=== PATIENT | male | born 1935 | race Caucasian/White ===

== ENCOUNTER 2019-07-31 13:59 | Inpatient (IN) | payer MEDICARE, MEDICAID ==
[~2019-07-31] VITALS: Ht 182.9 cm; Wt 85.5 kg
[~2019-07-31 13:59] MED LIST: AMIO200T61 PO; FURO-150 PO; POTA10TA19 PO; SIMV-45 PO; TERA5CAP4 PO
[2019-07-31] MEDS ORDERED: furosemide 40mg/4ml inj IV ONE (17:30)
[2019-07-31] MEDS ORDERED: pantoprazole 40 MG vial IV ONE (17:30)
[2019-07-31 17:59] LABS: BASOPHILS % (AUTO) 0.6 % (0-1); EOSINOPHILS # (AUTO) 0.1 X10'3 (0-0.9); EOSINOPHILS % (AUTO) 0.9 % (0-6); HEMATOCRIT 27.9 % (42.0-52.0); HEMOGLOBIN 9.5 g/dl (14.0-17.9); LYMPHOCYTES % (AUTO) 15.6 % (21-51); MEAN CORPUSCULAR HEMOGLOBIN 33.6 PG (27.0-31.0); MEAN CORPUSCULAR HGB CONC 33.9 g/dL (33.0-36.5); MEAN CORPUSCULAR VOLUME 99.3 FL (78-98); MEAN PLATELET VOLUME 8.8 FL (7.4-10.4); MONOCYTES # (AUTO) 0.6 X10'3 (0-0.9); MONOCYTES % (AUTO) 9.2 % (2-12); NEUTROPHILS # (AUTO) 4.7 X10'3 (1.8-7.7); NEUTROPHILS % (AUTO) 73.7 % (42-75); PLATELET COUNT 244 X10'3 (140-440); RED BLOOD COUNT 2.81 X10'6 (4.70-6.10); RED CELL DISTRIBUTION WIDTH 15.2 % (11.5-14.5); WHITE BLOOD COUNT 6.4 X10'3 (4.5-11.0)
[2019-07-31 18:23] LABS: ALANINE AMINOTRANSFERASE 44 U/L (12-78); ALBUMIN 3.3 G/DL (3.4-5.0); ALKALINE PHOSPHATASE 52 IU/L (46-116); ANION GAP 9 (8-16); ASPARTATE AMINO TRANSFERASE 28 U/L (10-37); BILIRUBIN,TOTAL 0.4 MG/DL (0.1-1.0); BLOOD UREA NITROGEN 20 MG/DL (7-18); BUN/CREATININE RATIO 15.7 (5.4-32.0); CALCIUM 8.3 MG/DL (8.5-10.1); CHLORIDE 106 MMOL/L (99-107); CREATININE 1.27 MG/DL (0.60-1.10); GLUCOSE 98 MG/DL (70-104); POTASSIUM 4.1 MMOL/L (3.5-5.1); SODIUM 143 MMOL/L (135-145); TOTAL CARBON DIOXIDE 27.7 MMOL/L (24-32); TOTAL PROTEIN 6.5 G/DL (6.4-8.2); eGFR 54 ML/MIN
[2019-07-31 19:07] LABS: OCCULT BLOOD STOOL POSITIVE (Neg)
[2019-07-31] MEDS ORDERED: IPRA30SP (19:42)
[2019-07-31 19:48] LABS: TROPONIN I 0.08 NG/ML (0.0-0.05)
[2019-07-31] MEDS ORDERED: magnesium hydroxide 30ml (MOM) UD suspension PO PRN (19:50)
[2019-07-31] MEDS ORDERED: mag hydrox/Alum hydrox/simeth 30ml oral suspension PO PRN (19:50)
[2019-07-31] MEDS ORDERED: ondansetron/PF 4mg/2ml inj IV PRN (19:50)
[2019-07-31] MEDS ORDERED: morphine 2 MG/ML inj. syringe IV PRN ×2 (19:50)
[2019-07-31] MEDS ORDERED: acetaminophen 325mg tablet PO PRN ×2 (19:50)
--- NOTE | 2019-07-31 23:40 | NUR ---
DR. SUERO AT BEDSIDE ASKING IF PATIENT CAN HAVE A SANDWICH, PATIENT HAS POSITIVE HEMOOCCULT AND WAS NPO, NIMO BRODY VERBALIZED TO GET PATIENT A SANDWICH AND WATER AND NPO AFTER
[2019-08-01 01:15] VITALS: BP 154/61
[2019-08-01 05:00] VITALS: BP 150/60
--- NOTE | 2019-08-01 06:00 | NUR ---
Patient in room ORTHO 4015. I have received report from BHUPINDER Fletcher and had the opportunity to ask questions and assume patient care.
[2019-08-01 06:22] LABS: BASOPHILS % (AUTO) 0.6 % (0-1); EOSINOPHILS # (AUTO) 0.2 X10'3 (0-0.9); EOSINOPHILS % (AUTO) 2.8 % (0-6); HEMATOCRIT 25.7 % (42.0-52.0); HEMOGLOBIN 8.7 g/dl (14.0-17.9); LYMPHOCYTES # (AUTO) 1.2 X10'3 (1.1-4.8); LYMPHOCYTES % (AUTO) 22.9 % (21-51); MEAN CORPUSCULAR HEMOGLOBIN 33.6 PG (27.0-31.0); MEAN CORPUSCULAR HGB CONC 33.7 g/dL (33.0-36.5); MEAN CORPUSCULAR VOLUME 99.6 FL (78-98); MEAN PLATELET VOLUME 8.7 FL (7.4-10.4); MONOCYTES # (AUTO) 0.7 X10'3 (0-0.9); MONOCYTES % (AUTO) 12.1 % (2-12); NEUTROPHILS # (AUTO) 3.3 X10'3 (1.8-7.7); NEUTROPHILS % (AUTO) 61.6 % (42-75); PLATELET COUNT 220 X10'3 (140-440); RED BLOOD COUNT 2.58 X10'6 (4.70-6.10); RED CELL DISTRIBUTION WIDTH 14.9 % (11.5-14.5); WHITE BLOOD COUNT 5.4 X10'3 (4.5-11.0)
--- NOTE | 2019-08-01 06:31 | NUR ---
Report given to ce Soares.
[2019-08-01 06:52] LABS: ALBUMIN 2.9 G/DL (3.4-5.0); ANION GAP 8 (8-16); BLOOD UREA NITROGEN 22 MG/DL (7-18); BUN/CREATININE RATIO 16.5 (5.4-32.0); CALCIUM 8.4 MG/DL (8.5-10.1); CHLORIDE 107 MMOL/L (99-107); CREATININE 1.33 MG/DL (0.60-1.10); GLUCOSE 81 MG/DL (70-104); POTASSIUM 3.9 MMOL/L (3.5-5.1); SODIUM 144 MMOL/L (135-145); TOTAL CARBON DIOXIDE 29.3 MMOL/L (24-32); eGFR 51 ML/MIN
[2019-08-01] MEDS: furosemide 20 MG/2 ML vial IV SCH ×2 (08:21→20:46)
[2019-08-01] MEDS: pantoprazole 40 MG vial IV SCH ×2 (08:21→20:46)
[2019-08-01 10:00] VITALS: BP 132/54
[2019-08-01 18:00] VITALS: BP 102/63
--- NOTE | 2019-08-01 18:00 | NUR ---
Problems reprioritized. Patient report given, questions answered & plan of care reviewed with BHUPINDER Cary.
[2019-08-01] MEDS: potassium chloride 8mEq ER tablet PO SCH (20:46)
[2019-08-01] MEDS: terazosin 5mg capsule PO SCH (20:46)
[2019-08-01] MEDS: atorvastatin 10mg tablet PO SCH (20:46)
[2019-08-01 22:00] VITALS: BP 126/63
[2019-08-02 06:00] VITALS: BP 102/40
--- NOTE | 2019-08-02 06:30 | NUR ---
Report given to ce Cruz and ce Miramontes.
--- NOTE | 2019-08-02 06:35 | NUR ---
Patient in room ORTHO 4015. I have received report from Lynnette ROE and had the opportunity to ask questions and assume patient care.
[2019-08-02 06:46] LABS: BASOPHILS % (AUTO) 0.3 % (0-1); EOSINOPHILS # (AUTO) 0.1 X10'3 (0-0.9); EOSINOPHILS % (AUTO) 2.3 % (0-6); HEMATOCRIT 26.1 % (42.0-52.0); LYMPHOCYTES % (AUTO) 17.9 % (21-51); MEAN CORPUSCULAR HGB CONC 34.5 g/dL (33.0-36.5); MEAN CORPUSCULAR VOLUME 98.7 FL (78-98); MEAN PLATELET VOLUME 8.1 FL (7.4-10.4); MONOCYTES # (AUTO) 0.6 X10'3 (0-0.9); MONOCYTES % (AUTO) 10.1 % (2-12); NEUTROPHILS # (AUTO) 3.9 X10'3 (1.8-7.7); NEUTROPHILS % (AUTO) 69.4 % (42-75); PLATELET COUNT 234 X10'3 (140-440); RED BLOOD COUNT 2.64 X10'6 (4.70-6.10); RED CELL DISTRIBUTION WIDTH 15.2 % (11.5-14.5); WHITE BLOOD COUNT 5.6 X10'3 (4.5-11.0)
[2019-08-02 07:06] LABS: ALBUMIN 2.9 G/DL (3.4-5.0); ANION GAP 8 (8-16); BLOOD UREA NITROGEN 18 MG/DL (7-18); CALCIUM 8.5 MG/DL (8.5-10.1); CHLORIDE 105 MMOL/L (99-107); CREATININE 1.38 MG/DL (0.60-1.10); GLUCOSE 120 MG/DL (70-104); POTASSIUM 3.5 MMOL/L (3.5-5.1); SODIUM 142 MMOL/L (135-145); TOTAL CARBON DIOXIDE 28.6 MMOL/L (24-32); eGFR 49 ML/MIN
[2019-08-02] MEDS: pantoprazole 40 MG vial IV SCH ×2 (07:46→20:21)
[2019-08-02] MEDS: potassium chloride 8mEq ER tablet PO SCH ×2 (07:46→20:27)
[2019-08-02] MEDS: furosemide 20 MG/2 ML vial IV SCH ×2 (07:46→20:20)
[2019-08-02 10:00] VITALS: BP 108/48
--- NOTE | 2019-08-02 12:08 | NUR ---
Initial: Pt admit w/ lower GIB blood via rectum hemorrhoid-related, CHF exacerbation, BPH, and acute versus chronic kidney disease per MD. PO 75-100% clear liquids started 08/01. Will monitor for diet advancement and additional protein needs. Rec: 1. advance diet per MD to heart healthy 2. bowel care as needed 3. wt per rx Addendum: 08/02/19 at [address] Amended: Links added.
[2019-08-02 18:00] VITALS: BP 106/60
--- NOTE | 2019-08-02 18:40 | NUR ---
Student documentation: I have reviewed and agree with all interventions, assessments performed and documented by Fe Cruz RN.
--- NOTE | 2019-08-02 18:42 | NUR ---
Student documentation: I have reviewed and agree with all interventions, assessments performed and documented by Nancy ROE.
--- NOTE | 2019-08-02 19:00 | NUR ---
Patient in room ORTHO 4015. I have received report from Nancy ROE and had the opportunity to ask questions and assume patient care.
[2019-08-02] MEDS: atorvastatin 10mg tablet PO SCH (20:27)
[2019-08-02] MEDS: terazosin 5mg capsule PO SCH (20:31)
[2019-08-02 22:00] VITALS: BP 106/42
[2019-08-03 06:00] VITALS: BP 115/41
[2019-08-03 06:03] LABS: BASOPHILS % (AUTO) 0.5 % (0-1); EOSINOPHILS # (AUTO) 0.1 X10'3 (0-0.9); EOSINOPHILS % (AUTO) 2.6 % (0-6); HEMATOCRIT 26.4 % (42.0-52.0); LYMPHOCYTES # (AUTO) 0.9 X10'3 (1.1-4.8); LYMPHOCYTES % (AUTO) 15.2 % (21-51); MEAN CORPUSCULAR HEMOGLOBIN 33.4 PG (27.0-31.0); MEAN CORPUSCULAR HGB CONC 34.2 g/dL (33.0-36.5); MEAN CORPUSCULAR VOLUME 97.9 FL (78-98); MEAN PLATELET VOLUME 8.5 FL (7.4-10.4); MONOCYTES # (AUTO) 0.8 X10'3 (0-0.9); MONOCYTES % (AUTO) 13.1 % (2-12); NEUTROPHILS % (AUTO) 68.6 % (42-75); PLATELET COUNT 262 X10'3 (140-440); RED CELL DISTRIBUTION WIDTH 15.3 % (11.5-14.5); WHITE BLOOD COUNT 5.8 X10'3 (4.5-11.0)
--- NOTE | 2019-08-03 06:40 | NUR ---
Patient in room ORTHO 4015. I have received report from NORMAN ROE and had the opportunity to ask questions and assume patient care.
[2019-08-03 06:52] LABS: ALBUMIN 2.9 G/DL (3.4-5.0); ANION GAP 8 (8-16); BLOOD UREA NITROGEN 21 MG/DL (7-18); BUN/CREATININE RATIO 13.6 (5.4-32.0); CALCIUM 8.2 MG/DL (8.5-10.1); CHLORIDE 106 MMOL/L (99-107); CREATININE 1.54 MG/DL (0.60-1.10); GLUCOSE 96 MG/DL (70-104); POTASSIUM 4.1 MMOL/L (3.5-5.1); SODIUM 143 MMOL/L (135-145); TOTAL CARBON DIOXIDE 29.3 MMOL/L (24-32); eGFR 43 ML/MIN
[2019-08-03] MEDS: potassium chloride 8mEq ER tablet PO SCH ×2 (07:44→20:21)
[2019-08-03] MEDS: furosemide 20 MG/2 ML vial IV SCH ×2 (07:44→20:21)
[2019-08-03] MEDS: pantoprazole 40 MG vial IV SCH (07:44)
[2019-08-03 10:00] VITALS: BP 108/55
[2019-08-03] MEDS ORDERED: terazosin 5mg capsule PO SCH (17:00)
[2019-08-03 18:00] VITALS: BP 124/55
[2019-08-03] MEDS ORDERED: FERR324T4 PO (18:02)
--- NOTE | 2019-08-03 18:05 | NUR ---
Problems reprioritized. Patient report given, questions answered & plan of care reviewed with MINE ROE.
[2019-08-03] MEDS ORDERED: DEXT15CA28 PO (18:12)
--- NOTE | 2019-08-03 18:23 | NUR ---
Patient in room ORTHO 4015. I have received report from Stephany ROE and had the opportunity to ask questions and assume patient care.
--- NOTE | 2019-08-03 18:50 | NUR ---
I called Dr. Gomes regarding the problem with patient's discharge home tonight. Per the patient, it is unsafe for him to be discharged since he has no access to heat in his trailer tonight; it is only by fire wood and he does not have any chopped now. He needs to chop some wood tomorrow for the heat since he only moved in 4-5 days ago per patient. I informed the patient we will pay for a cab to get him home and I discussed the issue regarding safety for discharge with the doctor, Dr. Gomes. She is keeping the day of discharge as of today but he can leave early in the am by 8am. If the bed is needed for other patient then he will need to be dc'd home as he has no medical necessity to stay past tonight.
--- NOTE | 2019-08-03 18:59 | NUR ---
I have notified patient that he needs to be out of hospital by 8am tomorrow; he said he didn't have his bolivar to the trailer now. And that his friend that drove him to the hospital has the bolivar, I asked that he call the friend to inform him that he needs to pick him up by 8am on Tuesday. The patient said he would not call the friend michele because it is late I encouraged him to do this since he needs to leave at 8am sharp. I informed the pt's nurse of what is going on with the discharge.
[2019-08-03] MEDS: atorvastatin 10mg tablet PO SCH (20:22)
[2019-08-03] MEDS: pantoprazole 40mg Tablet.DR PO SCH (20:22)
[2019-08-03 22:00] VITALS: BP 122/47
[2019-08-04 06:00] VITALS: BP 125/53
--- NOTE | 2019-08-04 06:00 | NUR ---
Patient in room ORTHO 4015. I have received report from MINE ROE and had the opportunity to ask questions and assume patient care.
--- NOTE | 2019-08-04 06:14 | NUR ---
Problems reprioritized. Patient report given, questions answered & plan of care reviewed with Stephany ROE.
[2019-08-04] MEDS: furosemide 20 MG/2 ML vial IV SCH (06:55)
[2019-08-04] MEDS: pantoprazole 40mg Tablet.DR PO SCH (06:55)
[2019-08-04] MEDS: potassium chloride 8mEq ER tablet PO SCH (06:55)
[2019-08-04 07:28] LABS: BASOPHILS % (AUTO) 0.6 % (0-1); EOSINOPHILS # (AUTO) 0.2 X10'3 (0-0.9); EOSINOPHILS % (AUTO) 3.9 % (0-6); HEMATOCRIT 27.1 % (42.0-52.0); HEMOGLOBIN 9.3 g/dl (14.0-17.9); LYMPHOCYTES # (AUTO) 1.2 X10'3 (1.1-4.8); LYMPHOCYTES % (AUTO) 21.7 % (21-51); MEAN CORPUSCULAR HEMOGLOBIN 33.8 PG (27.0-31.0); MEAN CORPUSCULAR HGB CONC 34.3 g/dL (33.0-36.5); MEAN CORPUSCULAR VOLUME 98.6 FL (78-98); MEAN PLATELET VOLUME 8.5 FL (7.4-10.4); MONOCYTES # (AUTO) 0.7 X10'3 (0-0.9); NEUTROPHILS # (AUTO) 3.2 X10'3 (1.8-7.7); NEUTROPHILS % (AUTO) 59.8 % (42-75); PLATELET COUNT 263 X10'3 (140-440); RED BLOOD COUNT 2.75 X10'6 (4.70-6.10); RED CELL DISTRIBUTION WIDTH 15.4 % (11.5-14.5); WHITE BLOOD COUNT 5.3 X10'3 (4.5-11.0)
[2019-08-04 07:34] LABS: ANION GAP 7 (8-16); BLOOD UREA NITROGEN 21 MG/DL (7-18); BUN/CREATININE RATIO 15.3 (5.4-32.0); CALCIUM 8.5 MG/DL (8.5-10.1); CHLORIDE 107 MMOL/L (99-107); CREATININE 1.37 MG/DL (0.60-1.10); GLUCOSE 91 MG/DL (70-104); POTASSIUM 4.1 MMOL/L (3.5-5.1); SODIUM 143 MMOL/L (135-145); eGFR 50 ML/MIN
--- NOTE | 2019-08-04 08:50 | NUR ---
PATIENT DISCHARGED SAFELY HOME VIA TAXI WITH ALL BELONGINGS IN POSSESSION. PATIENT VERBALIZES UNDERSTANDING OF DC INSTRUCTIONS. PRESCRIPTIONS WERE CALLED TO GIOVANNI SCHULZ.
--- NOTE | 2019-08-06 12:17 | NUR ---
Case Management DC follow up: spoke to pt via telephone: reported feeling , "pretty good" Wanted to thank the 4th floor from "[facility]" for helping him, sends his best and God Bless. Pt denies SOB, resp distress, NV, dizziness, and remains afebrile at this time. Productive cough/clear sputum, pt states he is having BMs that are "normal" brown, no blood noted in stool. Verbalizes understanding of meds and why prescribed, taking as ordered. Stated he will [place] going to [place] sometime this next week. All needs met, questions answered at DC, no further questions at this time. Addendum: 08/06/19 at 1225 by Lala Stringer RN Case Management DC follow up: Denies cp, emergent general pain. Understands if symptoms worsen, to call PCP, 03-21 or rtn to ER if symptoms warrant further eval
== END 2019-08-04 08:50 | disposition home or self-care (01) | DRG 291 ==
LOC: ER 14:00 → ED HOLD 19:49 → ORTHO 4S 08-01 01:14
PROVIDERS: ADMIT Internal Medicine; ATTEND Internal Medicine
DX: I13.0 Hypertensive heart and chronic kidney disease with heart failure and stage 1 through stage 4 chronic kidney disease, or unspecified chronic kidney disease (principal); I50.23 Acute on chronic systolic (congestive) heart failure; K92.1 Melena; R04.2 Hemoptysis; N17.9 Acute kidney failure, unspecified; D64.9 Anemia, unspecified; E78.5 Hyperlipidemia, unspecified; K64.9 Unspecified hemorrhoids; Z60.2 Problems related to living alone; I25.10 Atherosclerotic heart disease of native coronary artery without angina pectoris; N18.9 Chronic kidney disease, unspecified; I48.0 Paroxysmal atrial fibrillation; R09.81 Nasal congestion; N40.0 Benign prostatic hyperplasia without lower urinary tract symptoms; Z66 Do not resuscitate; Z95.1 Presence of aortocoronary bypass graft; I25.2 Old myocardial infarction; Z90.49 Acquired absence of other specified parts of digestive tract; Z79.899 Other long term (current) drug therapy
CPT/HCPCS: 36415; 71046; 80048; 80053; 82272; 83880; 84484; 85025; 85610; 87081; 93306; C9113; G0378; J1940

== ENCOUNTER 2021-02-20 11:29 | Inpatient (IN) | payer OTHER, MEDICARE, MEDICAID ==
[~2021-02-20] VITALS: Ht 182.9 cm; Wt 78.1 kg
[~2021-02-20 11:29] MED LIST changes: +DEXT15CA28 PO; +FERR324T4 PO; +IPRA30SP
[2021-02-20 12:45] LABS: D-DIMER 2.84 MG/L FEU (0-0.50)
[2021-02-20 12:47] LABS: ALANINE AMINOTRANSFERASE 27 U/L (12-78); ALBUMIN 3.1 G/DL (3.4-5.0); ALBUMIN/GLOBULIN RATIO 1.1 (1.1-1.5); ALKALINE PHOSPHATASE 45 IU/L (46-116); ANION GAP 7 (8-16); ASPARTATE AMINO TRANSFERASE 23 U/L (10-37); BILIRUBIN,TOTAL 0.4 MG/DL (0.1-1.0); BLOOD UREA NITROGEN 27 MG/DL (7-18); BUN/CREATININE RATIO 21.6 (5.4-32.0); CALCIUM 7.7 MG/DL (8.5-10.1); CHLORIDE 107 MMOL/L (99-107); CREATININE 1.25 MG/DL (0.60-1.10); GLUCOSE 108 MG/DL (70-104); POTASSIUM 4.3 MMOL/L (3.5-5.1); SODIUM 141 MMOL/L (135-145); TOTAL CARBON DIOXIDE 27.4 MMOL/L (24-32); TOTAL PROTEIN 5.8 G/DL (6.4-8.2); eGFR 55 ML/MIN
--- NOTE | 2021-02-20 13:17 | NUR ---
PT NOW STATES HE HAD A SYNCOPAL EPISODE THIS AM AT ABOUT 0500. PT PLACED ON CARDIACMONITOR, AND TOP COATER WERE NOTIFIED OF PT'S TROPONIN OF 0.22 AND BNP RESULT, AWAITING BED IN MAIN ER. PT REMAINS IN RAP AREA AT THIS TIME
[2021-02-20] MEDS ORDERED: enoxaparin 100mg/ml syringe SUBCUT ONE (13:35)
[2021-02-20 13:46] LABS: BASOPHILS % (AUTO) 0.3 % (0-1); EOSINOPHILS % (AUTO) 0.1 % (0-6); LYMPHOCYTES # (AUTO) 0.5 X10'3 (1.1-4.8); LYMPHOCYTES % (AUTO) 7.5 % (21-51); MEAN CORPUSCULAR HEMOGLOBIN 34.4 PG (27.0-31.0); MEAN CORPUSCULAR HGB CONC 32.7 g/dL (33.0-36.5); MEAN CORPUSCULAR VOLUME 105.1 FL (78-98); MEAN PLATELET VOLUME 9.5 FL (7.4-10.4); MONOCYTES # (AUTO) 0.5 X10'3 (0-0.9); MONOCYTES % (AUTO) 7.7 % (2-12); NEUTROPHILS # (AUTO) 5.9 X10'3 (1.8-7.7); NEUTROPHILS % (AUTO) 84.4 % (42-75); PLATELET COUNT 186 X10'3 (140-440); RED BLOOD COUNT 2.05 X10'6 (4.70-6.10); RED CELL DISTRIBUTION WIDTH 14.7 % (11.5-14.5)
[2021-02-20 13:49] LABS: HEMATOCRIT 21.5 % (42.0-52.0)
[2021-02-20] MEDS ORDERED: dexamethasone sod phosphate 10mg/ml inj IV STA (14:56)
[2021-02-20] MEDS ORDERED: iohexol 350MG/ML 100ml bottle IV ONE (15:52)
[2021-02-20 17:42] VITALS: BP 130/56
[2021-02-20 18:00] VITALS: BP 109/50
[2021-02-20] MEDS ORDERED: pantoprazole 40 MG vial IV ONE (18:00)
[2021-02-20] MEDS ORDERED: famotidine/PF 10 mg/ml inj IV ONE (18:00)
[2021-02-20 18:18] VITALS: BP 109/54
[2021-02-20] MEDS ORDERED: ondansetron/PF 4mg/2ml inj IV PRN (18:30)
[2021-02-20] MEDS ORDERED: diphenhydrAMINE 25mg capsule PO PRN (18:30)
[2021-02-20] MEDS ORDERED: HYDROcodone/acetaminophen 5mg/325mg tablet PO PRN (18:30)
[2021-02-20] MEDS: CefTRIAXone/D5W-Rocephin 1gm 50 ML IV SCH (18:30)
[2021-02-20] MEDS ORDERED: potassium Cl 40MEQ/1/2NS 520ml 520 ML IV PRN ×2 (18:30)
[2021-02-20] MEDS ORDERED: HYDROcodone/acetaminophen 10/325mg tab PO PRN (18:30)
[2021-02-20] MEDS ORDERED: furosemide 40mg/4ml inj IV ONE (18:30)
[2021-02-20] MEDS ORDERED: magnesium 2GM in 50ml NS 50 ML IV PRN (18:30)
[2021-02-20] MEDS ORDERED: magnesium Cl slow-release 64mg tablet PO PRN (18:30)
[2021-02-20] MEDS ORDERED: magnesium 4gm in 100ml NS 100 ML IV PRN (18:30)
[2021-02-20] MEDS ORDERED: potassium Cl 20 mEq SR tablet PO PRN ×2 (18:30)
[2021-02-20] MEDS ORDERED: mag hydrox/Alum hydrox/simeth 30ml oral suspension PO PRN (18:30)
[2021-02-20] MEDS: azithromycin 250mg tablet PO SCH (18:30)
[2021-02-20] MEDS ORDERED: ipratropium/albuterol 3ml nebule NEB PRN (18:30)
[2021-02-20] MEDS ORDERED: magnesium hydroxide 30ml (MOM) UD suspension PO PRN (18:30)
[2021-02-20] MEDS: normal saline 1000ml 1,000 ML IV SCH (18:30)
[2021-02-20] MEDS ORDERED: acetaminophen 325mg tablet PO PRN ×2 (18:30)
[2021-02-20] MEDS ORDERED: morphine 2 MG/ML inj. syringe IV PRN ×2 (18:30)
[2021-02-20] MEDS: ipratropium/albuterol 3ml nebule NEB SCH ×2 (19:00→23:00)
[2021-02-20] MEDS ORDERED: RIVA20TA PO (19:01)
[2021-02-20 19:20] LABS: HEMOGLOBIN A1C 4.8 % (4.5-6.2)
[2021-02-20 20:00] VITALS: BP 110/68
[2021-02-20] MEDS: furosemide 40mg/4ml inj IV SCH (20:00)
[2021-02-20] MEDS: K and/or MAG REPLACEMENT MC SCH (20:00)
[2021-02-20] MEDS: methylPREDNISolone sod succ 125mg/2ml vial IV SCH (20:53)
[2021-02-20] MEDS: docusate sod 100mg capsule PO SCH (20:53)
[2021-02-20] MEDS: pantoprazole 40MG/NS 100ML BAG 100 ML IV SCH (20:53)
[2021-02-20] MEDS ORDERED: pantoprazole 40MG/NS 100ML BAG 100 ML IV SCH (21:00)
[2021-02-20] MEDS: atorvastatin 20mg tablet PO SCH (21:00)
[2021-02-20] MEDS: terazosin 5mg capsule PO SCH (21:00)
--- NOTE | 2021-02-20 21:00 | NUR ---
Pt AAOX4. Pt ambulating around his room with no complaints voiced or reported. Pt provided food and drink per his request.
[2021-02-21 00:35] LABS: HEMATOCRIT 25.4 % (42.0-52.0); HEMOGLOBIN 8.6 g/dl (14.0-17.9); MEAN CORPUSCULAR HEMOGLOBIN 34.6 PG (27.0-31.0); MEAN CORPUSCULAR HGB CONC 33.7 g/dL (33.0-36.5); MEAN CORPUSCULAR VOLUME 102.7 FL (78-98); MEAN PLATELET VOLUME 9.6 FL (7.4-10.4); PLATELET COUNT 169 X10'3 (140-440); RED BLOOD COUNT 2.48 X10'6 (4.70-6.10); RED CELL DISTRIBUTION WIDTH 15.1 % (11.5-14.5); WHITE BLOOD COUNT 4.8 X10'3 (4.5-11.0)
[2021-02-21 00:52] LABS: ALANINE AMINOTRANSFERASE 25 U/L (12-78); ALBUMIN 3.2 G/DL (3.4-5.0); ALBUMIN/GLOBULIN RATIO 1.2 (1.1-1.5); ALKALINE PHOSPHATASE 57 IU/L (46-116); ANION GAP 10 (8-16); ASPARTATE AMINO TRANSFERASE 23 U/L (10-37); BILIRUBIN,TOTAL 0.7 MG/DL (0.1-1.0); BLOOD UREA NITROGEN 24 MG/DL (7-18); BUN/CREATININE RATIO 17.6 (5.4-32.0); CHLORIDE 105 MMOL/L (99-107); CREATININE 1.36 MG/DL (0.60-1.10); GLUCOSE 208 MG/DL (70-104); POTASSIUM 4.1 MMOL/L (3.5-5.1); SODIUM 140 MMOL/L (135-145); TOTAL PROTEIN 5.9 G/DL (6.4-8.2); eGFR 50 ML/MIN
[2021-02-21 00:55] LABS: CHOL/HDL RATIO 2.3 (0.00-4.99); CHOLESTEROL 153 MG/DL (0-200); HDL CHOLESTEROL 68 MG/DL (35-60); LDL CHOLESTEROL 67 MG/DL (50-100); MAGNESIUM 2.1 MG/DL (1.5-2.4); PHOSPHORUS 3.8 MG/DL (2.3-4.5)
--- NOTE | 2021-02-21 01:20 | NUR ---
Pt resting comfortably with no complaints voiced or reported.
[2021-02-21 01:21] LABS: TRIGLYCERIDES < 15 MG/DL (20-135)
[2021-02-21] MEDS: pantoprazole 40MG/NS 100ML BAG 100 ML IV SCH ×5 (01:29→21:24)
[2021-02-21] MEDS: methylPREDNISolone sod succ 125mg/2ml vial IV SCH ×4 (01:30→20:00)
[2021-02-21] MEDS: ipratropium/albuterol 3ml nebule NEB SCH ×6 (02:58→23:00)
--- NOTE | 2021-02-21 03:27 | NUR ---
Pt now resting with eyes closed. + rise and fall of chest noted.
--- NOTE | 2021-02-21 06:06 | NUR ---
Pt awake, alert, and oriented x 4. No complaints voiced or reported. Pt states he feels much better and wants to go home. Pt updated on POC and need for new hemogram
[2021-02-21] MEDS: azithromycin 250mg tablet PO SCH (07:59)
[2021-02-21] MEDS: furosemide 40mg/4ml inj IV SCH ×2 (07:59→21:18)
[2021-02-21] MEDS: docusate sod 100mg capsule PO SCH ×2 (07:59→20:00)
[2021-02-21] MEDS: K and/or MAG REPLACEMENT MC SCH ×2 (08:00→20:00)
[2021-02-21] MEDS: ipratropium 0.06% nasal spray 15ml NS SCH (08:00)
[2021-02-21] MEDS: CefTRIAXone/D5W-Rocephin 1gm 50 ML IV SCH (08:17)
[2021-02-21 09:22] LABS: HEMATOCRIT 28.7 % (42.0-52.0); HEMOGLOBIN 9.5 g/dl (14.0-17.9); MEAN CORPUSCULAR HEMOGLOBIN 34.4 PG (27.0-31.0); MEAN CORPUSCULAR VOLUME 104.4 FL (78-98); MEAN PLATELET VOLUME 9.3 FL (7.4-10.4); PLATELET COUNT 193 X10'3 (140-440); RED BLOOD COUNT 2.75 X10'6 (4.70-6.10); RED CELL DISTRIBUTION WIDTH 15.7 % (11.5-14.5); WHITE BLOOD COUNT 3.9 X10'3 (4.5-11.0)
[2021-02-21 09:38] LABS: OCCULT BLOOD STOOL POSITIVE (Neg)
--- NOTE | 2021-02-21 10:35 | NUR ---
sbar given to Michael ROE.
[2021-02-21 13:38] LABS: HEMATOCRIT 27.9 % (42.0-52.0); HEMOGLOBIN 9.3 g/dl (14.0-17.9); MEAN CORPUSCULAR HEMOGLOBIN 34.5 PG (27.0-31.0); MEAN CORPUSCULAR HGB CONC 33.3 g/dL (33.0-36.5); MEAN CORPUSCULAR VOLUME 103.6 FL (78-98); MEAN PLATELET VOLUME 9.4 FL (7.4-10.4); PLATELET COUNT 200 X10'3 (140-440); RED BLOOD COUNT 2.69 X10'6 (4.70-6.10); RED CELL DISTRIBUTION WIDTH 15.7 % (11.5-14.5); WHITE BLOOD COUNT 4.6 X10'3 (4.5-11.0)
[2021-02-21 17:10] LABS: CLARITY,URINE CLEAR (Clear); COLOR,URINE YELLOW (Yellow); GLUCOSE, URINE NEGATIVE (Neg); KETONES,URINE NEGATIVE (Neg); LEUKOCYTE ESTERASE ,URINE NEGATIVE (Neg); NITRITES, URINE NEGATIVE (Neg); OCCULT BLOOD,URINE TRACE-LYSED (Neg); PROTEIN,URINE NEGATIVE (Neg); UROBILINOGEN,URINE 0.2 E.U/dL (0.2-1.0)
[2021-02-21 17:11] LABS: UA COLLECTION TYPE CLN CATCH MIDSTREAM
[2021-02-21 17:15] LABS: BACTERIA,URINE NONE SEEN /HPF (Neg); COARSE GRANULAR CAST 0-3 /LPF (NEGATIVE); MUCUS STRANDS NONE SEEN /LPF (Neg); RBC,URINE 0-2 /HPF (0-2); SQUAMOUS EPITHELIAL CELL,UR FEW /LPF (FEW); WBC,URINE 0-4 /HPF (0-4)
--- NOTE | 2021-02-21 18:05 | NUR ---
Arrempted to call report to PCU at 1740 too late per PCU charge nurse
[2021-02-21 19:49] LABS: HEMATOCRIT 27.5 % (42.0-52.0); HEMOGLOBIN 9.3 g/dl (14.0-17.9); MEAN CORPUSCULAR HEMOGLOBIN 34.5 PG (27.0-31.0); MEAN CORPUSCULAR HGB CONC 33.7 g/dL (33.0-36.5); MEAN CORPUSCULAR VOLUME 102.3 FL (78-98); MEAN PLATELET VOLUME 9.3 FL (7.4-10.4); PLATELET COUNT 212 X10'3 (140-440); RED BLOOD COUNT 2.69 X10'6 (4.70-6.10); RED CELL DISTRIBUTION WIDTH 15.6 % (11.5-14.5); WHITE BLOOD COUNT 6.7 X10'3 (4.5-11.0)
[2021-02-21] MEDS: atorvastatin 20mg tablet PO SCH (21:17)
[2021-02-21] MEDS: terazosin 5mg capsule PO SCH (21:18)
[2021-02-22] VITALS (8 sets, daily range): BP systolic 90–130; BP diastolic 41–57
[2021-02-22] MEDS: pantoprazole 40MG/NS 100ML BAG 100 ML IV SCH ×2 (01:00→08:08)
--- NOTE | 2021-02-22 01:30 | NUR ---
PT RIPPED OUT IV AND REFUSED TO KEEP PROTONIX RUNNING. PT REFUSED TO HAVE ANOTHER IV PLACED.
[2021-02-22] MEDS: ipratropium/albuterol 3ml nebule NEB SCH ×5 (03:00→19:00)
[2021-02-22 04:13] LABS: BASOPHILS % (AUTO) 0 % (0-1); EOSINOPHILS % (AUTO) 0 % (0-6); HEMATOCRIT 24.9 % (42.0-52.0); HEMOGLOBIN 8.3 g/dl (14.0-17.9); LYMPHOCYTES # (AUTO) 0.3 X10'3 (1.1-4.8); LYMPHOCYTES % (AUTO) 3.9 % (21-51); MEAN CORPUSCULAR HGB CONC 33.5 g/dL (33.0-36.5); MEAN CORPUSCULAR VOLUME 104.5 FL (78-98); MEAN PLATELET VOLUME 9.6 FL (7.4-10.4); MONOCYTES # (AUTO) 0.4 X10'3 (0-0.9); NEUTROPHILS # (AUTO) 6.7 X10'3 (1.8-7.7); NEUTROPHILS % (AUTO) 90.1 % (42-75); PLATELET COUNT 169 X10'3 (140-440); RED BLOOD COUNT 2.38 X10'6 (4.70-6.10); RED CELL DISTRIBUTION WIDTH 15.3 % (11.5-14.5); WHITE BLOOD COUNT 7.4 X10'3 (4.5-11.0)
--- NOTE | 2021-02-22 04:39 | NUR ---
PT HAS TAKEN OFF ALL EQUIPMENT AND REFUSES TO HAVE VS DONE.
[2021-02-22 04:40] LABS: ALANINE AMINOTRANSFERASE 22 U/L (12-78); ALBUMIN 3.2 G/DL (3.4-5.0); ALBUMIN/GLOBULIN RATIO 1.3 (1.1-1.5); ALKALINE PHOSPHATASE 43 IU/L (46-116); ANION GAP 6 (8-16); ASPARTATE AMINO TRANSFERASE 16 U/L (10-37); BILIRUBIN,TOTAL 0.4 MG/DL (0.1-1.0); BLOOD UREA NITROGEN 27 MG/DL (7-18); BUN/CREATININE RATIO 18.6 (5.4-32.0); CALCIUM 8.1 MG/DL (8.5-10.1); CHLORIDE 105 MMOL/L (99-107); CREATININE 1.45 MG/DL (0.60-1.10); GLUCOSE 146 MG/DL (70-104); MAGNESIUM 2.3 MG/DL (1.5-2.4); PHOSPHORUS 4.7 MG/DL (2.3-4.5); POTASSIUM 3.9 MMOL/L (3.5-5.1); SODIUM 140 MMOL/L (135-145); TOTAL CARBON DIOXIDE 29.3 MMOL/L (24-32); TOTAL PROTEIN 5.7 G/DL (6.4-8.2); eGFR 46 ML/MIN
[2021-02-22] MEDS: K and/or MAG REPLACEMENT MC SCH ×2 (08:00→20:00)
[2021-02-22] MEDS: ipratropium 0.06% nasal spray 15ml NS SCH (08:00)
[2021-02-22] MEDS: CefTRIAXone/D5W-Rocephin 1gm 50 ML IV SCH (08:07)
[2021-02-22] MEDS: methylPREDNISolone sod succ/PF 40mg inj. IV SCH ×2 (08:07→20:39)
[2021-02-22] MEDS: furosemide 40mg/4ml inj IV SCH ×2 (08:08→20:38)
[2021-02-22] MEDS: docusate sod 100mg capsule PO SCH ×2 (08:08→20:00)
[2021-02-22] MEDS: azithromycin 250mg tablet PO SCH (08:08)
[2021-02-22] MEDS ORDERED: MIDAZolam 1 MG/ML 5ML VIAL ONE (09:10)
[2021-02-22] MEDS ORDERED: LIDOcaine Viscous 15ml cup ONE (09:10)
[2021-02-22] MEDS ORDERED: fentaNYL/PF 50MCG/1 ML 2ML syringe ONE (09:10)
--- NOTE | 2021-02-22 09:25 | NUR ---
Patient found standing on a chair trying to "fix" the blinds on the window in his room. This was the first time I caught him doing it, he was instructed not to do it as he might fall and just not safe. Patient was arguing and not listening so I called the attention of the charge nurse Mason to intervene. He went to the room talked to the patient and finally patient stopped what he was doing and went back to bed. Patient was instructed not to worry about the blinds and that we can call for help if needed. There was no problem found on the blinds, patient was just trying to rolled it up to get a better view from the window, Patient apologized about his behavior, I explained to him that we just care about his safety, he said he understood. Addendum: 02/22/21 at 1747 by Stew Villatoro RN *correction to the above note: "This was the second time I caught him doing it"
--- NOTE | 2021-02-22 09:32 | NUR ---
Patient ate clear liquid tray that was delivered to his room. When I got report from ER nurse this am, the nurse Leela did not mentioned anything about EGD procedure today. Maria De Jesus ROE from GI lab calling GI doctor to find out if it can still be done
--- NOTE | 2021-02-22 09:37 | NUR ---
Patient was taken by Maria De Jesus ROE to GI lab
--- NOTE | 2021-02-22 18:24 | NUR ---
Problems reprioritized. Patient report given, questions answered & plan of care reviewed with Dominguez ROE.
[2021-02-22] MEDS: atorvastatin 20mg tablet PO SCH (20:38)
[2021-02-22] MEDS: terazosin 5mg capsule PO SCH (20:38)
[2021-02-22] MEDS: pantoprazole 40 MG vial IV SCH (20:38)
[2021-02-22] MEDS: lactobacillus rhamnosus 10,000 MMU CELLS/CAPSULE PO SCH (20:38)
[2021-02-22] MEDS: normal saline 1000ml 1,000 ML IV SCH (20:48)
[2021-02-23 02:00] VITALS: BP 116/55
[2021-02-23] MEDS: ipratropium/albuterol 3ml nebule NEB SCH ×2 (03:00→08:00)
--- NOTE | 2021-02-23 06:32 | NUR ---
Problems reprioritized. Patient report given, questions answered & plan of care reviewed with Dominguez ROE.
--- NOTE | 2021-02-23 06:32 | NUR ---
Problems reprioritized. Patient report given, questions answered & plan of care reviewed with PETER. Addendum: 02/23/21 at 0632 by Roly Summers RN Amended: Links added.
--- NOTE | 2021-02-23 06:34 | NUR ---
Patient in room PCU 3026. I have received report from Dominguez ROE and had the opportunity to ask questions and assume patient care.
[2021-02-23 06:49] LABS: BASOPHILS % (AUTO) 0.1 % (0-1); EOSINOPHILS % (AUTO) 0 % (0-6); HEMATOCRIT 25.1 % (42.0-52.0); HEMOGLOBIN 8.2 g/dl (14.0-17.9); LYMPHOCYTES # (AUTO) 0.2 X10'3 (1.1-4.8); LYMPHOCYTES % (AUTO) 3.1 % (21-51); MEAN CORPUSCULAR HEMOGLOBIN 34.3 PG (27.0-31.0); MEAN CORPUSCULAR HGB CONC 32.7 g/dL (33.0-36.5); MEAN PLATELET VOLUME 9.4 FL (7.4-10.4); MONOCYTES # (AUTO) 0.3 X10'3 (0-0.9); MONOCYTES % (AUTO) 4.6 % (2-12); NEUTROPHILS # (AUTO) 5.4 X10'3 (1.8-7.7); NEUTROPHILS % (AUTO) 92.2 % (42-75); PLATELET COUNT 167 X10'3 (140-440); RED BLOOD COUNT 2.39 X10'6 (4.70-6.10); RED CELL DISTRIBUTION WIDTH 15.5 % (11.5-14.5); WHITE BLOOD COUNT 5.9 X10'3 (4.5-11.0)
[2021-02-23 07:00] VITALS: BP 102/56
[2021-02-23 07:12] LABS: ALANINE AMINOTRANSFERASE 22 U/L (12-78); ALBUMIN/GLOBULIN RATIO 1.3 (1.1-1.5); ALKALINE PHOSPHATASE 45 IU/L (46-116); ANION GAP 7 (8-16); ASPARTATE AMINO TRANSFERASE 18 U/L (10-37); BILIRUBIN,TOTAL 0.4 MG/DL (0.1-1.0); BLOOD UREA NITROGEN 26 MG/DL (7-18); CALCIUM 7.8 MG/DL (8.5-10.1); CHLORIDE 107 MMOL/L (99-107); GLUCOSE 125 MG/DL (70-104); MAGNESIUM 2.4 MG/DL (1.5-2.4); POTASSIUM 3.8 MMOL/L (3.5-5.1); SODIUM 143 MMOL/L (135-145); TOTAL CARBON DIOXIDE 29.1 MMOL/L (24-32); TOTAL PROTEIN 5.4 G/DL (6.4-8.2); eGFR 53 ML/MIN
[2021-02-23] MEDS: K and/or MAG REPLACEMENT MC SCH (08:00)
--- NOTE | 2021-02-23 08:06 | NUR ---
PT REFUSED 0700 SVN. NO RESP. DISTRESS OBSERVED
[2021-02-23] MEDS: pantoprazole 40 MG vial IV SCH (08:29)
[2021-02-23] MEDS: methylPREDNISolone sod succ/PF 40mg inj. IV SCH (08:29)
[2021-02-23] MEDS: furosemide 40mg/4ml inj IV SCH (08:29)
[2021-02-23] MEDS: CefTRIAXone/D5W-Rocephin 1gm 50 ML IV SCH (08:30)
[2021-02-23] MEDS: azithromycin 250mg tablet PO SCH (08:30)
[2021-02-23] MEDS: lactobacillus rhamnosus 10,000 MMU CELLS/CAPSULE PO SCH (08:31)
[2021-02-23] MEDS: docusate sod 100mg capsule PO SCH (08:31)
[2021-02-23] MEDS ORDERED: LACT1CAP26 PO (09:26)
[2021-02-23] MEDS ORDERED: BUDE10.22 INH (09:26)
[2021-02-23] MEDS ORDERED: PANT40TA54 PO (09:26)
[2021-02-23] MEDS ORDERED: PRED10TA23 PO (09:26)
[2021-02-23] MEDS ORDERED: ALBU8.5H17 INH (09:26)
[2021-02-23] MEDS ORDERED: CEFD300C3 PO (09:26)
--- NOTE | 2021-02-23 09:47 | NUR ---
PAGER ID: [phone] [facility]: Helen can I advance patients diet from [facility]
[2021-02-23] MEDS ORDERED: pneumococcal 23-VAL P-sac vacc 25 mcg/0.5ml vial IMVAC ONE (10:00)
--- NOTE | 2021-02-23 10:26 | NUR ---
Patient complaining of mild dizziness when he gets up I did set of orthostatics from sitting to standing as follows : sitting BP 106/57 HR 55 Standing 112/52 HR 56, Dr Mendoza rounding and is aware.
[2021-02-23 10:27] VITALS: BP_SYST 106; BP_SYST 112; BP_DIAS 52; BP_DIAS 57
[2021-02-23 11:00] VITALS: BP 126/47
--- NOTE | 2021-02-23 13:50 | NUR ---
Patients discharge instructions reviewed with patient and patient verbalized understanding. Resource RN Leela Brenner'alfonso patients Tele monitor and IV. Patient was taken to lobby where his friend is picking him up and patient is also going to tack picker his pocket knife from security at the [employer].
== END 2021-02-23 13:47 | disposition home or self-care (01) | DRG 368 ==
LOC: ER 11:29 → ED HOLD 18:38 → PCU 3S 02-22 08:50
PROVIDERS: ADMIT Family Medicine; ATTEND Family Medicine
PROC: 30233N1 Transfusion of Nonautologous Red Blood Cells into Peripheral Vein, Percutaneous Approach (ICD-10-PCS; 2021-02-20)
PROC: B32T1ZZ Computerized Tomography (CT Scan) of Left Pulmonary Artery using Low Osmolar Contrast (ICD-10-PCS; 2021-02-20)
PROC: B3201ZZ Computerized Tomography (CT Scan) of Thoracic Aorta using Low Osmolar Contrast (ICD-10-PCS; 2021-02-20)
PROC: B32S1ZZ Computerized Tomography (CT Scan) of Right Pulmonary Artery using Low Osmolar Contrast (ICD-10-PCS; 2021-02-20)
PROC: 0DB68ZX Excision of Stomach, Via Natural or Artificial Opening Endoscopic, Diagnostic (ICD-10-PCS; principal; 2021-02-22)
DX: K20.91 Esophagitis, unspecified with bleeding (principal); I21.A1 Myocardial infarction type 2; I50.23 Acute on chronic systolic (congestive) heart failure; N17.0 Acute kidney failure with tubular necrosis; D62 Acute posthemorrhagic anemia; I13.0 Hypertensive heart and chronic kidney disease with heart failure and stage 1 through stage 4 chronic kidney disease, or unspecified chronic kidney disease; J44.1 Chronic obstructive pulmonary disease with (acute) exacerbation; E78.5 Hyperlipidemia, unspecified; E86.0 Dehydration; I25.10 Atherosclerotic heart disease of native coronary artery without angina pectoris; I48.91 Unspecified atrial fibrillation; Z60.2 Problems related to living alone; N18.9 Chronic kidney disease, unspecified; Z20.822 Contact with and (suspected) exposure to COVID-19; R26.2 Difficulty in walking, not elsewhere classified; N40.0 Benign prostatic hyperplasia without lower urinary tract symptoms; Z79.01 Long term (current) use of anticoagulants; Z79.899 Other long term (current) drug therapy; Z87.891 Personal history of nicotine dependence; Z95.1 Presence of aortocoronary bypass graft; Z90.49 Acquired absence of other specified parts of digestive tract; Z28.21 Immunization not carried out because of patient refusal; K29.70 Gastritis, unspecified, without bleeding
CPT/HCPCS: 36415; 36430; 43239; 71045; 71275; 80053; 80061; 81001; 82272; 82948; 83036; 83735; 83880; 84100; 84484; 85025; 85027; 85379; 86885; 86900; 86901; 86920; 87635; 93005; 93306; 94760; 96361; 96374; 96375; 99152; 99285; A4620; C9113; G0378; J0696; J1100; J1940; J2250; J2920; J2930; J3010; J3490; J7030; J7040; P9016; Q9967

== ENCOUNTER 2021-06-21 10:35 | Inpatient (IN) | payer OTHER, MEDICARE, MEDICAID ==
[~2021-06-21] VITALS: Ht 182.9 cm; Wt 75.6 kg
[~2021-06-21 10:35] MED LIST changes: +ALBU8.5H17 INH; -AMIO200T61 PO; +BUDE10.22 INH; -DEXT15CA28 PO; -FERR324T4 PO; +LACT1CAP26 PO; +PANT40TA54 PO; +POTA-192 PO; -POTA10TA19 PO
[2021-06-21 11:22] LABS: BASOPHILS % (AUTO) 0.3 % (0-1); EOSINOPHILS % (AUTO) 0 % (0-6); HEMATOCRIT 30.4 % (42.0-52.0); HEMOGLOBIN 10.3 g/dl (14.0-17.9); LYMPHOCYTES # (AUTO) 0.5 X10'3 (1.1-4.8); LYMPHOCYTES % (AUTO) 7.9 % (21-51); MEAN CORPUSCULAR HEMOGLOBIN 32.5 PG (27.0-31.0); MEAN CORPUSCULAR HGB CONC 33.7 g/dL (33.0-36.5); MEAN CORPUSCULAR VOLUME 96.2 FL (78-98); MEAN PLATELET VOLUME 8.9 FL (7.4-10.4); MONOCYTES # (AUTO) 0.8 X10'3 (0-0.9); MONOCYTES % (AUTO) 11.4 % (2-12); NEUTROPHILS # (AUTO) 5.3 X10'3 (1.8-7.7); NEUTROPHILS % (AUTO) 80.4 % (42-75); PLATELET COUNT 163 X10'3 (140-440); RED BLOOD COUNT 3.16 X10'6 (4.70-6.10); RED CELL DISTRIBUTION WIDTH 18.3 % (11.5-14.5); WHITE BLOOD COUNT 6.6 X10'3 (4.5-11.0)
[2021-06-21 11:31] LABS: ALANINE AMINOTRANSFERASE 26 U/L (12-78); ALBUMIN 3.3 G/DL (3.4-5.0); ALBUMIN/GLOBULIN RATIO 1.1 (1.1-1.5); ALKALINE PHOSPHATASE 57 IU/L (46-116); ANION GAP 10 (8-16); ASPARTATE AMINO TRANSFERASE 25 U/L (10-37); BILIRUBIN,TOTAL 0.6 MG/DL (0.1-1.0); BLOOD UREA NITROGEN 21 MG/DL (7-18); BUN/CREATININE RATIO 17.2 (5.4-32.0); CALCIUM 8.6 MG/DL (8.5-10.1); CHLORIDE 103 MMOL/L (99-107); CREATININE 1.22 MG/DL (0.60-1.10); GLUCOSE 110 MG/DL (70-104); POTASSIUM 4.3 MMOL/L (3.5-5.1); SODIUM 138 MMOL/L (135-145); TOTAL CARBON DIOXIDE 25.5 MMOL/L (24-32); TOTAL PROTEIN 6.3 G/DL (6.4-8.2); eGFR 56 ML/MIN
[2021-06-21] MEDS ORDERED: nitroGLYCERIN 0.4mg SUBLingual tab SL PRN ×2 (12:35→13:05)
[2021-06-21] MEDS ORDERED: furosemide 10 MG/1 ML 10ml inj IV ONE (12:35)
[2021-06-21] MEDS ORDERED: aspirin 81mg tab.chew PO ONE (12:35)
[2021-06-21] MEDS ORDERED: heparin 10,000 units/1 ML INJ IV ONE (12:35)
[2021-06-21] MEDS ORDERED: heparin 25,000 UNIT/250ml bag 250 ML IV SCH (12:35)
[2021-06-21] MEDS ORDERED: heparin 10,000 units/1 ML INJ IV PRN (12:40)
[2021-06-21 12:52] LABS: PARTIAL THROMBOPLASTIN TIME 33 SECONDS (22-32)
[2021-06-21] MEDS ORDERED: magnesium 2GM in 50ml NS 50 ML IV PRN (13:05)
[2021-06-21] MEDS ORDERED: metoclopramide 5 mg/ml inj IV PRN (13:05)
[2021-06-21] MEDS ORDERED: HYDROcodone/acetaminophen 10/325mg tab PO PRN (13:05)
[2021-06-21] MEDS ORDERED: aspirin 81mg, enteric-coated 1 TAB TABLET.DR PO ONE (13:05)
[2021-06-21] MEDS ORDERED: ondansetron/PF 4mg/2ml inj IV PRN (13:05)
[2021-06-21] MEDS ORDERED: magnesium 4gm in 100ml NS 100 ML IV PRN (13:05)
[2021-06-21] MEDS ORDERED: potassium Cl 20 mEq SR tablet PO PRN ×2 (13:05)
[2021-06-21] MEDS ORDERED: acetaminophen 325mg tablet PO PRN ×2 (13:05)
[2021-06-21] MEDS ORDERED: azithromycin 250mg tablet PO ONE (13:05)
[2021-06-21] MEDS ORDERED: potassium CL 10mEq/100ml bag 100 ML IV PRN (13:05)
[2021-06-21] MEDS ORDERED: morphine 2 MG/ML inj. syringe IV PRN ×2 (13:05)
[2021-06-21] MEDS ORDERED: HYDROcodone/acetaminophen 5mg/325mg tablet PO PRN (13:05)
[2021-06-21] MEDS ORDERED: PERFLUTREN PROTEIN-A MICROSPHR (Optison) 0.22 MG/ML 3ML VIAL IV ONE (13:05)
[2021-06-21] MEDS ORDERED: ondansetron 4mg rapidly disintigrating tab PO PRN (13:05)
[2021-06-21] MEDS ORDERED: magnesium hydroxide 30ml (MOM) UD suspension PO PRN (13:05)
[2021-06-21] MEDS ORDERED: mag hydrox/Alum hydrox/simeth 30ml oral suspension PO PRN (13:05)
[2021-06-21] MEDS ORDERED: ipratropium/albuterol 3ml nebule NEB PRN (13:05)
[2021-06-21] MEDS ORDERED: magnesium Cl slow-release 64mg tablet PO PRN (13:05)
[2021-06-21] MEDS ORDERED: RIVA20TA PO (13:07)
[2021-06-21] MEDS ORDERED: POTA8CAP20 PO (13:08)
[2021-06-21] MEDS ORDERED: nitroGLYCERIN 1gm ointment UD TP ONE (13:15)
--- NOTE | 2021-06-21 13:31 | NUR ---
pt is using urinal at this time ,will put nitro ointment when pt is done urinating.
--- NOTE | 2021-06-21 13:38 | NUR ---
dr stewart at bedside.
[2021-06-21] MEDS: CefTRIAXone/D5W-Rocephin 1gm 50 ML IV SCH (14:16)
[2021-06-21 14:43] LABS: MAGNESIUM 1.9 MG/DL (1.5-2.4); PHOSPHORUS 2.9 MG/DL (2.3-4.5)
[2021-06-21] MEDS: ipratropium/albuterol 3ml nebule NEB SCH ×3 (15:00→23:00)
[2021-06-21] MEDS: terazosin 5mg capsule PO SCH (16:42)
--- NOTE | 2021-06-21 16:56 | NUR ---
rt at bedside.
[2021-06-21] MEDS ORDERED: rivaroxaban 20mg tablet PO SCH (18:00)
[2021-06-21 19:14] LABS: PARTIAL THROMBOPLASTIN TIME 72 SECONDS (22-32)
--- NOTE | 2021-06-21 19:32 | NUR ---
Patient PTT 72. Heparin drip reduced 1 unit/kg/hr per protocol.
[2021-06-21] MEDS: docusate sod 100mg capsule PO SCH (20:00)
[2021-06-21] MEDS: K and/or MAG REPLACEMENT MC SCH (20:00)
[2021-06-21] MEDS: furosemide 40mg/4ml inj IV SCH (20:00)
[2021-06-21] MEDS ORDERED: temazepam 15mg capsule PO PRN (21:00)
[2021-06-21] MEDS: atorvastatin 20mg tablet PO SCH (21:32)
[2021-06-21] MEDS: potassium chloride 8mEq ER tablet PO SCH (21:35)
--- NOTE | 2021-06-21 22:22 | NUR ---
OPTI ADMINSTERED DURING ECHO
--- NOTE | 2021-06-21 23:20 | NUR ---
Received report from BHUPINDER Judge. Awaiting patient arrival to the floor
[2021-06-21 23:35] VITALS: BP 111/60
--- NOTE | 2021-06-21 23:35 | NUR ---
Patient refused some parts of the assessment (skin check, removing pants/socks), refused teaching saying he is going home in the morning. Attempted again to explain all procedures, policies, risks and benefits. Patient verbalized understanding. Paul's temp is 99.9, refused to remove all 4 blankets or take tylenol, patient is aware of risks and said "I'll be fine." Will continue to monitor.
[2021-06-22 02:00] VITALS: BP 96/45
[2021-06-22 02:40] LABS: PARTIAL THROMBOPLASTIN TIME 53 SECONDS (22-32)
--- NOTE | 2021-06-22 02:53 | NUR ---
Patient's PTT therapeutic at 53. No rate changes needed.
[2021-06-22 06:00] VITALS: BP 102/51
--- NOTE | 2021-06-22 06:27 | NUR ---
Problems reprioritized. Patient report given, questions answered & plan of care reviewed with BHUPINDER Lauren and BHUPINDER Olvera.
--- NOTE | 2021-06-22 06:43 | NUR ---
Patient in room PCU 3020. I have received report from Elizabeth ROE and had the opportunity to ask questions and assume patient care.Patient resting in bed in no acute distress.
--- NOTE | 2021-06-22 06:46 | NUR ---
Patient in room PCU 3020. I have received report from Elizabeth ROE and had the opportunity to ask questions and assume patient care.
[2021-06-22] MEDS: ipratropium/albuterol 3ml nebule NEB SCH ×5 (07:27→23:45)
[2021-06-22] MEDS: K and/or MAG REPLACEMENT MC SCH ×2 (08:00→19:48)
[2021-06-22] MEDS: azithromycin 250mg tablet PO SCH (08:10)
[2021-06-22] MEDS: CefTRIAXone/D5W-Rocephin 1gm 50 ML IV SCH (08:10)
[2021-06-22] MEDS: furosemide 40mg/4ml inj IV SCH ×2 (08:10→19:47)
[2021-06-22] MEDS: docusate sod 100mg capsule PO SCH ×2 (08:11→19:49)
[2021-06-22] MEDS: potassium chloride 8mEq ER tablet PO SCH ×2 (08:11→19:47)
[2021-06-22] MEDS: aspirin 81mg, enteric-coated 1 TAB TABLET.DR PO SCH (08:11)
[2021-06-22 08:22] LABS: BASOPHILS % (AUTO) 0.5 % (0-1); EOSINOPHILS % (AUTO) 0 % (0-6); HEMATOCRIT 29.3 % (42.0-52.0); HEMOGLOBIN 9.8 g/dl (14.0-17.9); LYMPHOCYTES % (AUTO) 19.9 % (21-51); MEAN CORPUSCULAR HEMOGLOBIN 32.6 PG (27.0-31.0); MEAN CORPUSCULAR HGB CONC 33.6 g/dL (33.0-36.5); MEAN CORPUSCULAR VOLUME 97.1 FL (78-98); MEAN PLATELET VOLUME 9.1 FL (7.4-10.4); MONOCYTES # (AUTO) 0.6 X10'3 (0-0.9); MONOCYTES % (AUTO) 12.8 % (2-12); NEUTROPHILS # (AUTO) 3.2 X10'3 (1.8-7.7); NEUTROPHILS % (AUTO) 66.8 % (42-75); PLATELET COUNT 133 X10'3 (140-440); RED BLOOD COUNT 3.02 X10'6 (4.70-6.10); RED CELL DISTRIBUTION WIDTH 18.5 % (11.5-14.5); WHITE BLOOD COUNT 4.9 X10'3 (4.5-11.0)
[2021-06-22 09:45] LABS: ALANINE AMINOTRANSFERASE 21 U/L (12-78); ALBUMIN 2.9 G/DL (3.4-5.0); ALKALINE PHOSPHATASE 48 IU/L (46-116); ANION GAP 11 (8-16); ASPARTATE AMINO TRANSFERASE 29 U/L (10-37); BILIRUBIN,TOTAL 0.5 MG/DL (0.1-1.0); BLOOD UREA NITROGEN 22 MG/DL (7-18); BUN/CREATININE RATIO 17.7 (5.4-32.0); CALCIUM 8.5 MG/DL (8.5-10.1); CHLORIDE 102 MMOL/L (99-107); CHOLESTEROL 139 MG/DL (0-200); CREATININE 1.24 MG/DL (0.60-1.10); GLUCOSE 102 MG/DL (70-104); HDL CHOLESTEROL 71 MG/DL (35-60); LDL CHOLESTEROL 63 MG/DL (50-100); MAGNESIUM 1.9 MG/DL (1.5-2.4); POTASSIUM 3.5 MMOL/L (3.5-5.1); SODIUM 137 MMOL/L (135-145); TOTAL CARBON DIOXIDE 24.3 MMOL/L (24-32); TOTAL PROTEIN 5.9 G/DL (6.4-8.2); TRIGLYCERIDES 25 MG/DL (20-135); eGFR 55 ML/MIN
[2021-06-22 11:00] VITALS: BP 100/45
[2021-06-22 15:00] VITALS: BP 109/54
[2021-06-22] MEDS ORDERED: guaiFENesin/DM 10ml UD oral syrup PO PRN (15:25)
[2021-06-22] MEDS ORDERED: ipratropium 0.03% 30ML nasal spray NS SCH (16:05)
[2021-06-22 18:00] VITALS: BP 106/52
--- NOTE | 2021-06-22 18:27 | NUR ---
Problems reprioritized. Patient report given, questions answered & plan of care reviewed with Barbie ROE, patient stable at the transfer of care.
--- NOTE | 2021-06-22 18:27 | NUR ---
Orientee documentation: I have reviewed and agree with all interventions, assessments performed and documented by May ROE . Orientee Medication Administration: For this medication-pass time frame, all medication were reviewed, dispensed, administered and documented per hospital policy by May ROE .
--- NOTE | 2021-06-22 18:31 | NUR ---
Problems reprioritized. Patient report given, questions answered & plan of care reviewed with Barbie ROE.
[2021-06-22] MEDS: rivaroxaban 20mg tablet PO SCH (19:47)
[2021-06-22] MEDS: terazosin 5mg capsule PO SCH (20:03)
[2021-06-22] MEDS: atorvastatin 20mg tablet PO SCH (20:04)
[2021-06-22 22:00] VITALS: BP 92/43
[2021-06-23] VITALS (7 sets, daily range): BP systolic 90–115; BP diastolic 47–61
--- NOTE | 2021-06-23 06:26 | NUR ---
Problems reprioritized. Patient report given, questions answered & plan of care reviewed with May ROE .
[2021-06-23 06:47] LABS: BASOPHILS % (AUTO) 0.4 % (0-1); EOSINOPHILS # (AUTO) 0.1 X10'3 (0-0.9); EOSINOPHILS % (AUTO) 1.6 % (0-6); HEMATOCRIT 29.8 % (42.0-52.0); HEMOGLOBIN 9.9 g/dl (14.0-17.9); LYMPHOCYTES # (AUTO) 0.7 X10'3 (1.1-4.8); LYMPHOCYTES % (AUTO) 21.6 % (21-51); MEAN CORPUSCULAR HEMOGLOBIN 32.3 PG (27.0-31.0); MEAN CORPUSCULAR HGB CONC 33.3 g/dL (33.0-36.5); MEAN CORPUSCULAR VOLUME 96.8 FL (78-98); MEAN PLATELET VOLUME 9.2 FL (7.4-10.4); MONOCYTES # (AUTO) 0.5 X10'3 (0-0.9); MONOCYTES % (AUTO) 14.2 % (2-12); NEUTROPHILS # (AUTO) 2.1 X10'3 (1.8-7.7); NEUTROPHILS % (AUTO) 62.2 % (42-75); PLATELET COUNT 133 X10'3 (140-440); RED BLOOD COUNT 3.08 X10'6 (4.70-6.10); RED CELL DISTRIBUTION WIDTH 18.3 % (11.5-14.5); WHITE BLOOD COUNT 3.4 X10'3 (4.5-11.0)
[2021-06-23] MEDS: ipratropium/albuterol 3ml nebule NEB SCH ×5 (07:00→23:18)
[2021-06-23 07:02] LABS: ALANINE AMINOTRANSFERASE 27 U/L (12-78); ALKALINE PHOSPHATASE 49 IU/L (46-116); ANION GAP 7 (8-16); ASPARTATE AMINO TRANSFERASE 33 U/L (10-37); BILIRUBIN,TOTAL 0.4 MG/DL (0.1-1.0); BLOOD UREA NITROGEN 26 MG/DL (7-18); BUN/CREATININE RATIO 19.3 (5.4-32.0); CALCIUM 8.5 MG/DL (8.5-10.1); CHLORIDE 103 MMOL/L (99-107); CREATININE 1.35 MG/DL (0.60-1.10); GLUCOSE 94 MG/DL (70-104); MAGNESIUM 1.9 MG/DL (1.5-2.4); POTASSIUM 3.9 MMOL/L (3.5-5.1); SODIUM 139 MMOL/L (135-145); TOTAL CARBON DIOXIDE 28.8 MMOL/L (24-32); eGFR 50 ML/MIN
[2021-06-23] MEDS: K and/or MAG REPLACEMENT MC SCH ×2 (08:00→20:00)
[2021-06-23] MEDS: azithromycin 250mg tablet PO SCH (09:38)
[2021-06-23] MEDS: docusate sod 100mg capsule PO SCH ×2 (09:38→20:00)
[2021-06-23] MEDS: aspirin 81mg, enteric-coated 1 TAB TABLET.DR PO SCH (09:38)
[2021-06-23] MEDS: CefTRIAXone/D5W-Rocephin 1gm 50 ML IV SCH (09:38)
[2021-06-23] MEDS: potassium chloride 8mEq ER tablet PO SCH ×2 (09:38→20:00)
[2021-06-23] MEDS: guaiFENesin ER 600mg tablet PO SCH ×2 (11:14→20:00)
--- NOTE | 2021-06-23 18:12 | NUR ---
Patient in room PCU 3020. I have received report from Barbie ROE and had the opportunity to ask questions and assume patient care.
--- NOTE | 2021-06-23 18:19 | NUR ---
Problems reprioritized. Patient report given, questions answered & plan of care reviewed with Ni RN, patient stable at transfer of care.
[2021-06-23] MEDS: rivaroxaban 20mg tablet PO SCH (18:44)
[2021-06-23] MEDS: atorvastatin 20mg tablet PO SCH (20:00)
[2021-06-23] MEDS: terazosin 5mg capsule PO SCH (20:01)
[2021-06-24 02:00] VITALS: BP 106/52
[2021-06-24 06:00] VITALS: BP 97/49
[2021-06-24 06:37] LABS: BASOPHILS % (AUTO) 0.5 % (0-1); EOSINOPHILS # (AUTO) 0.1 X10'3 (0-0.9); HEMOGLOBIN 8.9 g/dl (14.0-17.9); LYMPHOCYTES # (AUTO) 0.7 X10'3 (1.1-4.8); MONOCYTES # (AUTO) 0.5 X10'3 (0-0.9); NEUTROPHILS # (AUTO) 2.4 X10'3 (1.8-7.7); RED CELL DISTRIBUTION WIDTH 17.8 % (11.5-14.5); WHITE BLOOD COUNT 3.8 X10'3 (4.5-11.0)
[2021-06-24 06:39] LABS: EOSINOPHILS % (AUTO) 3.1 % (0-6); HEMATOCRIT 26.4 % (42.0-52.0); LYMPHOCYTES % (AUTO) 19.3 % (21-51); MEAN CORPUSCULAR HEMOGLOBIN 32.1 PG (27.0-31.0); MEAN CORPUSCULAR HGB CONC 33.7 g/dL (33.0-36.5); MEAN CORPUSCULAR VOLUME 95.3 FL (78-98); MEAN PLATELET VOLUME 9.3 FL (7.4-10.4); MONOCYTES % (AUTO) 13.8 % (2-12); NEUTROPHILS % (AUTO) 63.3 % (42-75); PLATELET COUNT 137 X10'3 (140-440); RED BLOOD COUNT 2.77 X10'6 (4.70-6.10)
--- NOTE | 2021-06-24 06:41 | NUR ---
Patient in room PCU 3020. I have received report from BHUPINDER ALMANZA and had the opportunity to ask questions and assume patient care.
[2021-06-24] MEDS: ipratropium/albuterol 3ml nebule NEB SCH ×5 (07:00→23:00)
[2021-06-24 07:04] LABS: ALANINE AMINOTRANSFERASE 30 U/L (12-78); ALBUMIN 2.7 G/DL (3.4-5.0); ALBUMIN/GLOBULIN RATIO 0.9 (1.1-1.5); ALKALINE PHOSPHATASE 46 IU/L (46-116); ANION GAP 9 (8-16); ASPARTATE AMINO TRANSFERASE 35 U/L (10-37); BILIRUBIN,TOTAL 0.4 MG/DL (0.1-1.0); BLOOD UREA NITROGEN 24 MG/DL (7-18); BUN/CREATININE RATIO 21.4 (5.4-32.0); CALCIUM 8.5 MG/DL (8.5-10.1); CHLORIDE 105 MMOL/L (99-107); CREATININE 1.12 MG/DL (0.60-1.10); GLUCOSE 88 MG/DL (70-104); MAGNESIUM 1.9 MG/DL (1.5-2.4); SODIUM 142 MMOL/L (135-145); TOTAL CARBON DIOXIDE 28.2 MMOL/L (24-32); TOTAL PROTEIN 5.6 G/DL (6.4-8.2); eGFR 62 ML/MIN
[2021-06-24] MEDS: azithromycin 250mg tablet PO SCH (07:57)
[2021-06-24] MEDS: docusate sod 100mg capsule PO SCH ×2 (07:57→20:44)
[2021-06-24] MEDS: CefTRIAXone/D5W-Rocephin 1gm 50 ML IV SCH (07:57)
[2021-06-24] MEDS: guaiFENesin ER 600mg tablet PO SCH ×2 (07:57→20:44)
[2021-06-24] MEDS: aspirin 81mg, enteric-coated 1 TAB TABLET.DR PO SCH (07:57)
[2021-06-24] MEDS: K and/or MAG REPLACEMENT MC SCH ×2 (08:00→20:00)
[2021-06-24] MEDS: potassium chloride 8mEq ER tablet PO SCH ×2 (08:08→20:44)
[2021-06-24 11:00] VITALS: BP 104/52
[2021-06-24 15:00] VITALS: BP 101/59
[2021-06-24 18:00] VITALS: BP 120/55
[2021-06-24] MEDS: rivaroxaban 20mg tablet PO SCH (18:33)
[2021-06-24] MEDS: atorvastatin 20mg tablet PO SCH (20:44)
[2021-06-24] MEDS: terazosin 5mg capsule PO SCH (20:44)
[2021-06-24] MEDS: furosemide 20 MG/2 ML vial IV SCH (20:45)
[2021-06-24 22:00] VITALS: BP 128/61
[2021-06-25 02:00] VITALS: BP 106/50
[2021-06-25 06:00] VITALS: BP 101/52
[2021-06-25 06:29] LABS: BASOPHILS % (AUTO) 0.7 % (0-1); EOSINOPHILS # (AUTO) 0.1 X10'3 (0-0.9); EOSINOPHILS % (AUTO) 3.6 % (0-6); HEMATOCRIT 27.5 % (42.0-52.0); HEMOGLOBIN 9.2 g/dl (14.0-17.9); LYMPHOCYTES # (AUTO) 0.8 X10'3 (1.1-4.8); LYMPHOCYTES % (AUTO) 20.2 % (21-51); MEAN CORPUSCULAR HEMOGLOBIN 31.9 PG (27.0-31.0); MEAN CORPUSCULAR HGB CONC 33.3 g/dL (33.0-36.5); MEAN CORPUSCULAR VOLUME 95.9 FL (78-98); MONOCYTES # (AUTO) 0.6 X10'3 (0-0.9); MONOCYTES % (AUTO) 14.6 % (2-12); NEUTROPHILS # (AUTO) 2.5 X10'3 (1.8-7.7); NEUTROPHILS % (AUTO) 60.9 % (42-75); PLATELET COUNT 153 X10'3 (140-440); RED BLOOD COUNT 2.87 X10'6 (4.70-6.10); RED CELL DISTRIBUTION WIDTH 17.7 % (11.5-14.5); WHITE BLOOD COUNT 4.1 X10'3 (4.5-11.0)
[2021-06-25 06:40] LABS: ALANINE AMINOTRANSFERASE 28 U/L (12-78); ALBUMIN 2.8 G/DL (3.4-5.0); ALKALINE PHOSPHATASE 50 IU/L (46-116); ANION GAP 5 (8-16); ASPARTATE AMINO TRANSFERASE 29 U/L (10-37); BILIRUBIN,TOTAL 0.4 MG/DL (0.1-1.0); BLOOD UREA NITROGEN 21 MG/DL (7-18); BUN/CREATININE RATIO 20.8 (5.4-32.0); CALCIUM 8.7 MG/DL (8.5-10.1); CHLORIDE 105 MMOL/L (99-107); CREATININE 1.01 MG/DL (0.60-1.10); GLUCOSE 84 MG/DL (70-104); SODIUM 138 MMOL/L (135-145); TOTAL CARBON DIOXIDE 28.5 MMOL/L (24-32); TOTAL PROTEIN 5.6 G/DL (6.4-8.2); eGFR 70 ML/MIN
[2021-06-25] MEDS: ipratropium/albuterol 3ml nebule NEB SCH ×2 (07:58→11:00)
[2021-06-25] MEDS: K and/or MAG REPLACEMENT MC SCH (08:00)
[2021-06-25] MEDS: docusate sod 100mg capsule PO SCH (08:00)
[2021-06-25] MEDS: furosemide 20 MG/2 ML vial IV SCH (08:16)
[2021-06-25] MEDS: CefTRIAXone/D5W-Rocephin 1gm 50 ML IV SCH (08:16)
[2021-06-25] MEDS: guaiFENesin ER 600mg tablet PO SCH (08:16)
[2021-06-25] MEDS: aspirin 81mg, enteric-coated 1 TAB TABLET.DR PO SCH (08:16)
[2021-06-25] MEDS: potassium chloride 8mEq ER tablet PO SCH (08:16)
[2021-06-25] MEDS: azithromycin 250mg tablet PO SCH (08:16)
[2021-06-25] MEDS ORDERED: LEVO500T90 PO (10:36)
[2021-06-25] MEDS ORDERED: ROBDML PO (10:36)
[2021-06-25] MEDS ORDERED: GUAI600T45 PO (10:36)
[2021-06-25] MEDS ORDERED: FURO-150 PO (10:36)
== END 2021-06-25 14:10 | disposition home or self-care (01) | DRG 193 ==
LOC: ER 10:36 → ED HOLD 13:32 → EDBEDREQ 21:24 → PCU 3S 23:25
PROVIDERS: ADMIT Family Medicine; ATTEND Family Medicine
DX: J18.9 Pneumonia, unspecified organism (principal); I21.A1 Myocardial infarction type 2; I50.43 Acute on chronic combined systolic (congestive) and diastolic (congestive) heart failure; J96.21 Acute and chronic respiratory failure with hypoxia; I13.0 Hypertensive heart and chronic kidney disease with heart failure and stage 1 through stage 4 chronic kidney disease, or unspecified chronic kidney disease; J44.0 Chronic obstructive pulmonary disease with (acute) lower respiratory infection; J98.11 Atelectasis; Z20.822 Contact with and (suspected) exposure to COVID-19; I48.91 Unspecified atrial fibrillation; J40 Bronchitis, not specified as acute or chronic; Z60.2 Problems related to living alone; N18.9 Chronic kidney disease, unspecified; I50.84 End stage heart failure; E78.5 Hyperlipidemia, unspecified; I25.10 Atherosclerotic heart disease of native coronary artery without angina pectoris; N40.0 Benign prostatic hyperplasia without lower urinary tract symptoms; Z86.16 Personal history of COVID-19; Z87.891 Personal history of nicotine dependence; Z95.1 Presence of aortocoronary bypass graft; Z98.61 Coronary angioplasty status; I25.2 Old myocardial infarction; Z90.49 Acquired absence of other specified parts of digestive tract
CPT/HCPCS: 36415; 71045; 80053; 80061; 83605; 83735; 83880; 84100; 84145; 84443; 84484; 85025; 85730; 87040; 87081; 87502; 87503; 87635; 93005; 93306; 94640; 94667; 94668; 94760; 96365; 96375; 99291; C9803; G0378; J0696; J1644; J1940

== ENCOUNTER 2021-07-20 14:24 | Inpatient (IN) | payer OTHER, MEDICARE, MEDICAID ==
[~2021-07-20] VITALS: Ht 182.9 cm; Wt 76.2 kg
[~2021-07-20 14:24] MED LIST changes: -ALBU8.5H17 INH; -BUDE10.22 INH; +GUAI600T45 PO; -LACT1CAP26 PO; +LEVO500T90 PO; -PANT40TA54 PO; -POTA-192 PO; +POTA8CAP20 PO; +RIVA20TA PO; +ROBDML PO
[2021-07-20 15:09] LABS: BASOPHILS % (AUTO) 0.6 % (0-1); EOSINOPHILS # (AUTO) 0.1 X10'3 (0-0.9); EOSINOPHILS % (AUTO) 2.6 % (0-6); HEMATOCRIT 24.7 % (42.0-52.0); HEMOGLOBIN 8.3 g/dl (14.0-17.9); LYMPHOCYTES # (AUTO) 0.7 X10'3 (1.1-4.8); LYMPHOCYTES % (AUTO) 15.1 % (21-51); MEAN CORPUSCULAR HGB CONC 33.7 g/dL (33.0-36.5); MEAN CORPUSCULAR VOLUME 97.7 FL (78-98); MONOCYTES # (AUTO) 0.6 X10'3 (0-0.9); MONOCYTES % (AUTO) 13.4 % (2-12); NEUTROPHILS # (AUTO) 3.1 X10'3 (1.8-7.7); NEUTROPHILS % (AUTO) 68.3 % (42-75); PLATELET COUNT 142 X10'3 (140-440); RED BLOOD COUNT 2.53 X10'6 (4.70-6.10); RED CELL DISTRIBUTION WIDTH 18.5 % (11.5-14.5); WHITE BLOOD COUNT 4.5 X10'3 (4.5-11.0)
[2021-07-20 15:28] LABS: ALANINE AMINOTRANSFERASE 25 U/L (12-78); ALBUMIN 3.3 G/DL (3.4-5.0); ALBUMIN/GLOBULIN RATIO 1.2 (1.1-1.5); ALKALINE PHOSPHATASE 65 IU/L (46-116); ANION GAP 10 (8-16); ASPARTATE AMINO TRANSFERASE 26 U/L (10-37); BILIRUBIN,TOTAL 0.6 MG/DL (0.1-1.0); BLOOD UREA NITROGEN 41 MG/DL (7-18); BUN/CREATININE RATIO 24.6 (5.4-32.0); CALCIUM 8.4 MG/DL (8.5-10.1); CHLORIDE 101 MMOL/L (99-107); CREATININE 1.67 MG/DL (0.60-1.10); GLUCOSE 110 MG/DL (70-104); SODIUM 138 MMOL/L (135-145); TOTAL CARBON DIOXIDE 27.2 MMOL/L (24-32); TOTAL PROTEIN 6.1 G/DL (6.4-8.2); eGFR 39 ML/MIN
[2021-07-20 15:36] LABS: C-REACTIVE PROTEIN 0.65 MG/DL (0.0-0.5)
[2021-07-20 16:18] LABS: D-DIMER 0.74 MG/L FEU (0-0.50)
[2021-07-20] MEDS ORDERED: aspirin 81mg tab.chew PO ONE (17:50)
--- NOTE | 2021-07-20 18:44 | NUR ---
assumed care of patient - asked charge nurse to get cardiac leads into the room to monitor the patient. Pt is currently seated in bed no distress and denies CP.
--- NOTE | 2021-07-20 19:37 | NUR ---
patisteven now on monitor sr with inverted t waves wide complex. patietn denies symptoms at this time. will CTM. trop's elevated x 2
[2021-07-20] MEDS ORDERED: diphenhydrAMINE 25mg capsule PO PRN (20:50)
[2021-07-20] MEDS ORDERED: ondansetron/PF 4mg/2ml inj IV PRN (20:50)
[2021-07-20] MEDS ORDERED: HYDROcodone/acetaminophen 5mg/325mg tablet PO PRN (20:50)
[2021-07-20] MEDS ORDERED: acetaminophen 325mg tablet PO PRN ×2 (20:50)
[2021-07-20] MEDS ORDERED: diphenhydrAMINE 50 mg/ml inj IV PRN (20:50)
[2021-07-20] MEDS ORDERED: acetaminophen 650mg rectal suppository RC PRN (20:50)
[2021-07-20] MEDS ORDERED: mag hydrox/Alum hydrox/simeth 30ml oral suspension PO PRN (20:50)
[2021-07-20] MEDS ORDERED: bisacodyl 10mg suppository rectal RC PRN (20:50)
[2021-07-20] MEDS ORDERED: magnesium hydroxide 30ml (MOM) UD suspension PO PRN (20:50)
[2021-07-20] MEDS ORDERED: morphine 2 MG/ML inj. syringe IV PRN ×2 (20:50)
[2021-07-20] MEDS ORDERED: FURO40TA4 PO (20:53)
[2021-07-20] MEDS ORDERED: POTA8CAP20 PO (20:54)
[2021-07-20] MEDS ORDERED: SIMV-45 PO (20:54)
[2021-07-20] MEDS ORDERED: RIVA20TA PO (20:54)
[2021-07-20] MEDS ORDERED: TERA5CAP4 PO (20:54)
[2021-07-20] MEDS ORDERED: IPRA30SP (20:54)
[2021-07-20] MEDS ORDERED: temazepam 15mg capsule PO PRN (21:00)
[2021-07-20 21:06] LABS: HEMOGLOBIN A1C 5.6 % (4.5-6.2)
[2021-07-20 21:17] LABS: APTT 29 SECONDS (22-32)
[2021-07-20 21:18] LABS: MAGNESIUM 2.2 MG/DL (1.5-2.4); PHOSPHORUS 4.3 MG/DL (2.3-4.5)
[2021-07-21] VITALS (13 sets, daily range): BP systolic 97–126; BP diastolic 46–67
[2021-07-21 03:42] LABS: EOSINOPHILS # (AUTO) 0.2 X10'3 (0-0.9); EOSINOPHILS % (AUTO) 4.8 % (0-6); HEMATOCRIT 24.1 % (42.0-52.0); HEMOGLOBIN 8.2 g/dl (14.0-17.9); LYMPHOCYTES % (AUTO) 23.5 % (21-51); MEAN CORPUSCULAR HEMOGLOBIN 33.4 PG (27.0-31.0); MEAN CORPUSCULAR HGB CONC 34.1 g/dL (33.0-36.5); MEAN CORPUSCULAR VOLUME 97.8 FL (78-98); MEAN PLATELET VOLUME 8.9 FL (7.4-10.4); MONOCYTES # (AUTO) 0.5 X10'3 (0-0.9); MONOCYTES % (AUTO) 12.5 % (2-12); NEUTROPHILS # (AUTO) 2.5 X10'3 (1.8-7.7); NEUTROPHILS % (AUTO) 58.2 % (42-75); PLATELET COUNT 139 X10'3 (140-440); RED BLOOD COUNT 2.46 X10'6 (4.70-6.10); WHITE BLOOD COUNT 4.3 X10'3 (4.5-11.0)
[2021-07-21 03:56] LABS: ALANINE AMINOTRANSFERASE 9 U/L (12-78); ALBUMIN 3.2 G/DL (3.4-5.0); ALBUMIN/GLOBULIN RATIO 1.3 (1.1-1.5); ALKALINE PHOSPHATASE 60 IU/L (46-116); ANION GAP 8 (8-16); ASPARTATE AMINO TRANSFERASE 22 U/L (10-37); BILIRUBIN,TOTAL 0.5 MG/DL (0.1-1.0); BLOOD UREA NITROGEN 40 MG/DL (7-18); BUN/CREATININE RATIO 23.7 (5.4-32.0); CALCIUM 8.6 MG/DL (8.5-10.1); CHLORIDE 102 MMOL/L (99-107); CREATININE 1.69 MG/DL (0.60-1.10); GLUCOSE 115 MG/DL (70-104); POTASSIUM 3.3 MMOL/L (3.5-5.1); SODIUM 140 MMOL/L (135-145); TOTAL CARBON DIOXIDE 29.7 MMOL/L (24-32); TOTAL PROTEIN 5.7 G/DL (6.4-8.2); eGFR 39 ML/MIN
[2021-07-21 03:58] LABS: CHOLESTEROL 139 MG/DL (0-200); HDL CHOLESTEROL 68 MG/DL (35-60); LDL CHOLESTEROL 64 MG/DL (50-100); TRIGLYCERIDES 25 MG/DL (20-135)
--- NOTE | 2021-07-21 06:39 | NUR ---
Change of shift report given to Osiris ROE Addendum: 07/21/21 at 0640 by Fannie Woodall RN Amended: Links added.
[2021-07-21] MEDS ORDERED: nitroGLYCERIN 0.4mg SUBLingual tab SL PRN (06:55)
[2021-07-21] MEDS ORDERED: metoprolol tartrate 1mg/ml inj IV PRN (06:55)
[2021-07-21] MEDS ORDERED: aminophylline 250mg/10ml inj. IV PRN (06:55)
[2021-07-21] MEDS ORDERED: regadenoson 0.4mg/5ml syringe IV ONE (06:55)
--- NOTE | 2021-07-21 08:42 | NUR ---
pt is scheduled for stress test, Dr Cruz gave verbal order to hold stress test until evaluated by mount loader, [employer] tech and primary nurse, Osiris ROE aware,
[2021-07-21] MEDS: aspirin 81mg, enteric-coated 1 TAB TABLET.DR PO SCH (11:18)
[2021-07-21] MEDS: pantoprazole 40mg Tablet.DR PO SCH (11:18)
[2021-07-21] MEDS: docusate sod 100mg capsule PO SCH ×2 (11:18→20:52)
[2021-07-21] MEDS: atorvastatin 20mg tablet PO SCH (11:20)
[2021-07-21] MEDS: furosemide 20 MG/2 ML vial IV SCH (15:48)
[2021-07-21] MEDS ORDERED: potassium Cl 20 mEq SR tablet PO PRN (15:55)
[2021-07-21] MEDS ORDERED: potassium CL 10mEq/100ml bag 100 ML IV PRN (15:55)
[2021-07-21] MEDS ORDERED: magnesium Cl slow-release 64mg tablet PO PRN (15:55)
[2021-07-21] MEDS ORDERED: magnesium 4gm in 100ml NS 100 ML IV PRN (15:55)
[2021-07-21] MEDS: potassium Cl 20 mEq SR tablet PO PRN (17:21)
[2021-07-21] MEDS ORDERED: rivaroxaban 20mg tablet PO SCH (18:00)
--- NOTE | 2021-07-21 18:21 | NUR ---
Problems reprioritized. Patient report given, questions answered & plan of care reviewed with Trista/ARCHIE ROE.
[2021-07-21] MEDS: carVEDilol 3.125mg tablet PO SCH (20:52)
[2021-07-21] MEDS ORDERED: terazosin 5mg capsule PO SCH (21:00)
[2021-07-22 02:00] VITALS: BP 100/47
[2021-07-22] MEDS: potassium Cl 20 mEq SR tablet PO PRN (04:26)
--- NOTE | 2021-07-22 06:08 | NUR ---
Patient in room PCU 3025. I have received report from Jamaica RN and had the opportunity to ask questions and assume patient care.
[2021-07-22 06:17] LABS: BASOPHILS % (AUTO) 0.8 % (0-1); EOSINOPHILS # (AUTO) 0.2 X10'3 (0-0.9); EOSINOPHILS % (AUTO) 5.8 % (0-6); HEMOGLOBIN 7.6 g/dl (14.0-17.9); LYMPHOCYTES # (AUTO) 0.8 X10'3 (1.1-4.8); MEAN CORPUSCULAR HEMOGLOBIN 32.3 PG (27.0-31.0); MEAN CORPUSCULAR HGB CONC 32.9 g/dL (33.0-36.5); MEAN CORPUSCULAR VOLUME 98.2 FL (78-98); MEAN PLATELET VOLUME 8.8 FL (7.4-10.4); MONOCYTES # (AUTO) 0.5 X10'3 (0-0.9); MONOCYTES % (AUTO) 12.6 % (2-12); NEUTROPHILS # (AUTO) 2.5 X10'3 (1.8-7.7); NEUTROPHILS % (AUTO) 61.8 % (42-75); PLATELET COUNT 135 X10'3 (140-440); RED BLOOD COUNT 2.35 X10'6 (4.70-6.10)
[2021-07-22 06:55] LABS: ALANINE AMINOTRANSFERASE 24 U/L (12-78); ALBUMIN 2.8 G/DL (3.4-5.0); ALKALINE PHOSPHATASE 51 IU/L (46-116); ANION GAP 7 (8-16); ASPARTATE AMINO TRANSFERASE 19 U/L (10-37); BILIRUBIN,TOTAL 0.4 MG/DL (0.1-1.0); BLOOD UREA NITROGEN 40 MG/DL (7-18); BUN/CREATININE RATIO 28.2 (5.4-32.0); CALCIUM 8.5 MG/DL (8.5-10.1); CHLORIDE 107 MMOL/L (99-107); CREATININE 1.42 MG/DL (0.60-1.10); GLUCOSE 96 MG/DL (70-104); POTASSIUM 4.2 MMOL/L (3.5-5.1); SODIUM 142 MMOL/L (135-145); TOTAL CARBON DIOXIDE 27.8 MMOL/L (24-32); TOTAL PROTEIN 5.5 G/DL (6.4-8.2); eGFR 47 ML/MIN
[2021-07-22] MEDS: carVEDilol 3.125mg tablet PO SCH (09:45)
[2021-07-22] MEDS: pantoprazole 40mg Tablet.DR PO SCH (09:45)
[2021-07-22] MEDS: aspirin 81mg, enteric-coated 1 TAB TABLET.DR PO SCH (09:45)
[2021-07-22] MEDS: docusate sod 100mg capsule PO SCH (09:45)
[2021-07-22] MEDS: atorvastatin 20mg tablet PO SCH (09:45)
[2021-07-22] MEDS: furosemide 20 MG/2 ML vial IV SCH (09:46)
--- NOTE | 2021-07-22 14:48 | NUR ---
Patient is stable for discharge per Dr. Cruz orders. All discharge instructions reviewed with patient and all questions answered. PIV discontinued, cannula intact. Tele monitor discontinued. Belongings sent with patient. Patient wheeled to lobby via nursing staff and picked up by friend.
== END 2021-07-22 14:55 | disposition home or self-care (01) | DRG 280 ==
LOC: ER 14:25 → ED HOLD 20:50 → PCU 3S 07-21 00:25
PROVIDERS: ADMIT Family Medicine; ATTEND Internal Medicine
PROC: 4A02XM4 Measurement of Cardiac Total Activity, External Approach (ICD-10-PCS; principal; 2021-07-21)
PROC: 3E073KZ Introduction of Other Diagnostic Substance into Coronary Artery, Percutaneous Approach (ICD-10-PCS; 2021-07-21)
DX: I13.0 Hypertensive heart and chronic kidney disease with heart failure and stage 1 through stage 4 chronic kidney disease, or unspecified chronic kidney disease (principal); I21.4 Non-ST elevation (NSTEMI) myocardial infarction; I50.23 Acute on chronic systolic (congestive) heart failure; N17.9 Acute kidney failure, unspecified; I42.9 Cardiomyopathy, unspecified; Z20.822 Contact with and (suspected) exposure to COVID-19; I27.20 Pulmonary hypertension, unspecified; E78.5 Hyperlipidemia, unspecified; I08.3 Combined rheumatic disorders of mitral, aortic and tricuspid valves; Z60.2 Problems related to living alone; R00.2 Palpitations; R00.1 Bradycardia, unspecified; N18.30 Chronic kidney disease, stage 3 unspecified; I45.10 Unspecified right bundle-branch block; I48.0 Paroxysmal atrial fibrillation; J44.9 Chronic obstructive pulmonary disease, unspecified; D53.9 Nutritional anemia, unspecified; N40.0 Benign prostatic hyperplasia without lower urinary tract symptoms; Z79.01 Long term (current) use of anticoagulants; Z79.899 Other long term (current) drug therapy; I25.2 Old myocardial infarction; Z95.1 Presence of aortocoronary bypass graft; Z86.16 Personal history of COVID-19; Z87.891 Personal history of nicotine dependence; Z90.49 Acquired absence of other specified parts of digestive tract
CPT/HCPCS: 36415; 71045; 78452; 80053; 80061; 83036; 83735; 83880; 84100; 84484; 85025; 85379; 85610; 85651; 85730; 86140; 87081; 87635; 93005; 93017; 99285; A9500; C9803; G0378; J1940; J2785

== ENCOUNTER 2021-08-21 15:42 | Inpatient (IN) | payer OTHER, MEDICARE, MEDICAID ==
[~2021-08-21] VITALS: Ht 182.9 cm; Wt 63.6 kg
[~2021-08-21 15:42] MED LIST changes: -FURO-150 PO; +FURO40TA4 PO; -GUAI600T45 PO; -LEVO500T90 PO; -ROBDML PO; -TERA5CAP4 PO
--- NOTE | 2021-08-21 15:51 | NUR ---
MILANA ACOSTA (FRIEND) [phone]
[2021-08-21 16:30] LABS: EOSINOPHILS % (AUTO) 0.9 % (0-6); HEMATOCRIT 22.8 % (42.0-52.0); HEMOGLOBIN 7.3 g/dl (14.0-17.9); LYMPHOCYTES # (AUTO) 0.6 X10'3 (1.1-4.8); LYMPHOCYTES % (AUTO) 13.5 % (21-51); MEAN CORPUSCULAR HEMOGLOBIN 28.4 PG (27.0-31.0); MEAN CORPUSCULAR VOLUME 88.5 FL (78-98); MEAN PLATELET VOLUME 8.3 FL (7.4-10.4); MONOCYTES # (AUTO) 0.6 X10'3 (0-0.9); MONOCYTES % (AUTO) 14.3 % (2-12); NEUTROPHILS # (AUTO) 2.9 X10'3 (1.8-7.7); NEUTROPHILS % (AUTO) 70.3 % (42-75); PLATELET COUNT 227 X10'3 (140-440); RED BLOOD COUNT 2.58 X10'6 (4.70-6.10); RED CELL DISTRIBUTION WIDTH 17.4 % (11.5-14.5); WHITE BLOOD COUNT 4.1 X10'3 (4.5-11.0)
[2021-08-21 16:53] LABS: ALANINE AMINOTRANSFERASE 34 U/L (12-78); ALBUMIN 3.5 G/DL (3.4-5.0); ALBUMIN/GLOBULIN RATIO 1.2 (1.1-1.5); ALKALINE PHOSPHATASE 67 IU/L (46-116); ANION GAP 7 (8-16); ASPARTATE AMINO TRANSFERASE 33 U/L (10-37); BILIRUBIN,TOTAL 0.7 MG/DL (0.1-1.0); BLOOD UREA NITROGEN 44 MG/DL (7-18); BUN/CREATININE RATIO 23.7 (5.4-32.0); CHLORIDE 93 MMOL/L (99-107); CREATININE 1.86 MG/DL (0.60-1.10); GLUCOSE 111 MG/DL (70-104); SODIUM 134 MMOL/L (135-145); TOTAL CARBON DIOXIDE 34.2 MMOL/L (24-32); TOTAL PROTEIN 6.5 G/DL (6.4-8.2); eGFR 35 ML/MIN
[2021-08-21 16:57] LABS: POTASSIUM 2.3 MMOL/L (3.5-5.1)
[2021-08-21] MEDS ORDERED: potassium Cl 20 mEq SR tablet PO ONE (17:00)
[2021-08-21] MEDS: magnesium 2GM in 50ml NS 50 ML IV SCH ×2 (17:21→18:00)
[2021-08-21 17:40] LABS: D-DIMER 0.64 MG/L FEU (0-0.50)
[2021-08-21] MEDS ORDERED: furosemide 10 MG/1 ML 10ml inj IV ONE (18:40)
[2021-08-21] MEDS ORDERED: ondansetron/PF 4mg/2ml inj IV PRN (20:00)
[2021-08-21] MEDS: heparin, porcine 5000 units/ml vial SQ SCH (20:00)
[2021-08-21] MEDS ORDERED: potassium Cl 20 mEq SR tablet PO PRN (20:00)
[2021-08-21] MEDS ORDERED: potassium CL 10mEq/100ml bag 100 ML IV PRN (20:00)
[2021-08-21] MEDS ORDERED: magnesium hydroxide 30ml (MOM) UD suspension PO PRN (20:00)
[2021-08-21] MEDS ORDERED: acetaminophen 325mg tablet PO PRN (20:00)
[2021-08-21] MEDS: furosemide 40mg/4ml inj IV SCH (20:00)
[2021-08-21] MEDS ORDERED: magnesium 2GM in 50ml NS 50 ML IV PRN (20:00)
[2021-08-21] MEDS: K and/or MAG REPLACEMENT MC SCH (20:00)
[2021-08-21] MEDS ORDERED: mag hydrox/Alum hydrox/simeth 30ml oral suspension PO PRN (20:00)
[2021-08-21] MEDS ORDERED: magnesium Cl slow-release 64mg tablet PO PRN (20:00)
[2021-08-21] MEDS ORDERED: morphine 2 MG/ML inj. syringe IV PRN (20:00)
[2021-08-21] MEDS ORDERED: magnesium 4gm in 100ml NS 100 ML IV PRN (20:00)
[2021-08-21] MEDS ORDERED: temazepam 15mg capsule PO PRN (21:00)
--- NOTE | 2021-08-21 23:21 | NUR ---
MD notified of Patient troponin trend. No new orders.
[2021-08-21 23:46] VITALS: BP 89/45
--- NOTE | 2021-08-22 | NUR ---
Patient admitted to room 3024B. Alert and oriented X4 oriented to room and call busby system. No complaints of pain. BP running soft, 250cc bolus given. Skin intact. Patient up and about no distress noted. Will continue to monitor.
[2021-08-22] MEDS: potassium Cl 20 mEq SR tablet PO PRN ×3 (01:44→17:26)
[2021-08-22 02:00] VITALS: BP 94/50
[2021-08-22] MEDS ORDERED: LISI5TAB22 PO (03:03)
[2021-08-22] MEDS ORDERED: CARV3.122 PO (03:03)
[2021-08-22] MEDS ORDERED: ZAR2.5T PO (03:03)
[2021-08-22] MEDS ORDERED: DOXA4TAB42 PO (03:03)
[2021-08-22 06:00] VITALS: BP 101/53
[2021-08-22 06:02] LABS: BASOPHILS # (AUTO) 0.1 X10'3 (0-0.2); BASOPHILS % (AUTO) 1.3 % (0-1); EOSINOPHILS # (AUTO) 0.1 X10'3 (0-0.9); EOSINOPHILS % (AUTO) 1.5 % (0-6); HEMATOCRIT 22.3 % (42.0-52.0); HEMOGLOBIN 7.2 g/dl (14.0-17.9); LYMPHOCYTES # (AUTO) 0.7 X10'3 (1.1-4.8); LYMPHOCYTES % (AUTO) 15.9 % (21-51); MEAN CORPUSCULAR HGB CONC 32.3 g/dL (33.0-36.5); MEAN CORPUSCULAR VOLUME 89.9 FL (78-98); MEAN PLATELET VOLUME 8.8 FL (7.4-10.4); MONOCYTES # (AUTO) 0.7 X10'3 (0-0.9); MONOCYTES % (AUTO) 15.7 % (2-12); NEUTROPHILS # (AUTO) 2.7 X10'3 (1.8-7.7); NEUTROPHILS % (AUTO) 65.6 % (42-75); PLATELET COUNT 209 X10'3 (140-440); RED BLOOD COUNT 2.48 X10'6 (4.70-6.10); RED CELL DISTRIBUTION WIDTH 17.4 % (11.5-14.5); WHITE BLOOD COUNT 4.2 X10'3 (4.5-11.0)
[2021-08-22 06:21] LABS: ALANINE AMINOTRANSFERASE 29 U/L (12-78); ALBUMIN 3.2 G/DL (3.4-5.0); ALBUMIN/GLOBULIN RATIO 1.3 (1.1-1.5); ALKALINE PHOSPHATASE 61 IU/L (46-116); ANION GAP 9 (8-16); ASPARTATE AMINO TRANSFERASE 29 U/L (10-37); BILIRUBIN,TOTAL 0.6 MG/DL (0.1-1.0); BLOOD UREA NITROGEN 46 MG/DL (7-18); BUN/CREATININE RATIO 25.7 (5.4-32.0); CALCIUM 8.8 MG/DL (8.5-10.1); CHLORIDE 96 MMOL/L (99-107); CREATININE 1.79 MG/DL (0.60-1.10); GLUCOSE 98 MG/DL (70-104); SODIUM 137 MMOL/L (135-145); TOTAL CARBON DIOXIDE 31.6 MMOL/L (24-32); TOTAL PROTEIN 5.6 G/DL (6.4-8.2); eGFR 36 ML/MIN
[2021-08-22] MEDS: furosemide 40mg/4ml inj IV SCH ×2 (08:36→20:00)
[2021-08-22] MEDS: K and/or MAG REPLACEMENT MC SCH ×2 (08:39→20:00)
[2021-08-22] MEDS: heparin, porcine 5000 units/ml vial SQ SCH ×2 (08:39→19:30)
--- NOTE | 2021-08-22 09:28 | NUR ---
Noted pt with a low BMI of 19.0 with documented wt of 63.6 kg. Pt with scaled wt hx 78.1-76.25 02/24/20-07/21/21 resulting in appropriate BMI. Pt denied wt loss or decreased appetite per malnutrition risk screen with RN. Current documented wt likely not accurate. Pending documentation of PO intake this admit though noted pt historically eats well during past admits with mostly 100% PO intake. Pt appears well developed well nourished per ED report. No concerns for malnutrition at this time. Will continue to follow. Addendum: 08/22/21 at [address] Amended: Links added.
[2021-08-22 11:00] VITALS: BP 93/51
[2021-08-22] MEDS ORDERED: SIMV-45 PO (14:09)
[2021-08-22 15:00] VITALS: BP 97/46
[2021-08-22 18:00] VITALS: BP_SYST 96; BP_DIAS 42; BP_DIAS 66
--- NOTE | 2021-08-22 20:01 | NUR ---
Lasix was not administered . Bp bp is 96/66.
--- NOTE | 2021-08-22 20:03 | NUR ---
K WAS NOT ADMINISTERED. MORNING SHIFT ALREADY ADMINISTERED 60 MEQ PO.
--- NOTE | 2021-08-22 21:15 | NUR ---
promotional table spacer PAGER ID: [phone] MESSAGE: Good evening My name is Katlin. I'm at [facility]. I have Mr Helen Arreaga in room 3024 b. Stating that he've been taking Terazosin since 1981 but when I look at his medication for the night did not see that medication on the emar. Ex [id number]
[2021-08-22 22:00] VITALS: BP 106/59
[2021-08-22] MEDS: HYDROcodone/acetaminophen 5mg/325mg tablet PO PRN (22:46)
[2021-08-23] VITALS (8 sets, daily range): BP systolic 91–126; BP diastolic 56–79
--- NOTE | 2021-08-23 06:48 | NUR ---
Patient in room PCU 3024. I have received report from Katlin and had the opportunity to ask questions and assume patient care.
[2021-08-23 07:04] LABS: BASOPHILS # (AUTO) 0.1 X10'3 (0-0.2); EOSINOPHILS # (AUTO) 0.1 X10'3 (0-0.9); EOSINOPHILS % (AUTO) 1.2 % (0-6); HEMATOCRIT 23.7 % (42.0-52.0); HEMOGLOBIN 7.7 g/dl (14.0-17.9); LYMPHOCYTES # (AUTO) 0.9 X10'3 (1.1-4.8); MEAN CORPUSCULAR HEMOGLOBIN 29.1 PG (27.0-31.0); MEAN CORPUSCULAR HGB CONC 32.7 g/dL (33.0-36.5); MEAN PLATELET VOLUME 8.8 FL (7.4-10.4); MONOCYTES # (AUTO) 0.8 X10'3 (0-0.9); MONOCYTES % (AUTO) 14.9 % (2-12); NEUTROPHILS # (AUTO) 3.3 X10'3 (1.8-7.7); NEUTROPHILS % (AUTO) 64.9 % (42-75); PLATELET COUNT 255 X10'3 (140-440); RED BLOOD COUNT 2.66 X10'6 (4.70-6.10); RED CELL DISTRIBUTION WIDTH 17.4 % (11.5-14.5); WHITE BLOOD COUNT 5.1 X10'3 (4.5-11.0)
[2021-08-23 07:10] LABS: ALANINE AMINOTRANSFERASE 134 U/L (12-78); ALBUMIN 3.6 G/DL (3.4-5.0); ALBUMIN/GLOBULIN RATIO 1.5 (1.1-1.5); ALKALINE PHOSPHATASE 71 IU/L (46-116); ANION GAP 8 (8-16); ASPARTATE AMINO TRANSFERASE 154 U/L (10-37); BILIRUBIN,TOTAL 0.8 MG/DL (0.1-1.0); BLOOD UREA NITROGEN 53 MG/DL (7-18); BUN/CREATININE RATIO 29.1 (5.4-32.0); CALCIUM 8.9 MG/DL (8.5-10.1); CHLORIDE 94 MMOL/L (99-107); CREATININE 1.82 MG/DL (0.60-1.10); GLUCOSE 102 MG/DL (70-104); POTASSIUM 4.2 MMOL/L (3.5-5.1); SODIUM 133 MMOL/L (135-145); TOTAL CARBON DIOXIDE 30.7 MMOL/L (24-32); eGFR 36 ML/MIN
[2021-08-23] MEDS: furosemide 40mg/4ml inj IV SCH ×2 (08:00→19:20)
[2021-08-23] MEDS: K and/or MAG REPLACEMENT MC SCH ×2 (08:00→20:00)
[2021-08-23] MEDS: heparin, porcine 5000 units/ml vial SQ SCH ×2 (08:06→19:22)
--- NOTE | 2021-08-23 19:19 | NUR ---
furosemide was not administered. BP 98/79 HR 91.
--- NOTE | 2021-08-23 19:31 | NUR ---
Problems reprioritized. Patient report given, questions answered & plan of care reviewed with Katlin.
[2021-08-24 02:00] VITALS: BP 106/86
[2021-08-24 06:00] VITALS: BP 96/56
[2021-08-24 06:10] LABS: BASOPHILS % (AUTO) 0.9 % (0-1); EOSINOPHILS % (AUTO) 0.5 % (0-6); HEMATOCRIT 22.5 % (42.0-52.0); HEMOGLOBIN 7.3 g/dl (14.0-17.9); LYMPHOCYTES # (AUTO) 0.7 X10'3 (1.1-4.8); LYMPHOCYTES % (AUTO) 13.8 % (21-51); MEAN CORPUSCULAR HGB CONC 32.7 g/dL (33.0-36.5); MEAN CORPUSCULAR VOLUME 88.8 FL (78-98); MEAN PLATELET VOLUME 8.8 FL (7.4-10.4); MONOCYTES # (AUTO) 0.8 X10'3 (0-0.9); MONOCYTES % (AUTO) 15.4 % (2-12); NEUTROPHILS # (AUTO) 3.4 X10'3 (1.8-7.7); NEUTROPHILS % (AUTO) 69.4 % (42-75); PLATELET COUNT 245 X10'3 (140-440); RED BLOOD COUNT 2.53 X10'6 (4.70-6.10); RED CELL DISTRIBUTION WIDTH 17.4 % (11.5-14.5); WHITE BLOOD COUNT 4.9 X10'3 (4.5-11.0)
[2021-08-24 06:37] LABS: ALANINE AMINOTRANSFERASE 223 U/L (12-78); ALBUMIN 3.4 G/DL (3.4-5.0); ALBUMIN/GLOBULIN RATIO 1.3 (1.1-1.5); ANION GAP 6 (8-16); ASPARTATE AMINO TRANSFERASE 201 U/L (10-37); BILIRUBIN,TOTAL 0.9 MG/DL (0.1-1.0); BLOOD UREA NITROGEN 50 MG/DL (7-18); BUN/CREATININE RATIO 30.1 (5.4-32.0); CALCIUM 8.9 MG/DL (8.5-10.1); CHLORIDE 95 MMOL/L (99-107); CREATININE 1.66 MG/DL (0.60-1.10); GLUCOSE 106 MG/DL (70-104); SODIUM 132 MMOL/L (135-145); TOTAL CARBON DIOXIDE 31.4 MMOL/L (24-32); eGFR 40 ML/MIN
[2021-08-24 06:49] LABS: ALKALINE PHOSPHATASE 71 IU/L (46-116)
[2021-08-24 07:46] LABS: TOTAL CELLS COUNTED 100
[2021-08-24 07:47] LABS: ANISOCYTOSIS 1+; PLATELET ESTIMATE NORMAL; TARGET CELLS FEW
[2021-08-24 07:48] LABS: ELLIPTOCYTES FEW; SCHISTOCYTES FEW
[2021-08-24] MEDS: furosemide 40mg/4ml inj IV SCH ×2 (08:00→20:00)
[2021-08-24] MEDS: K and/or MAG REPLACEMENT MC SCH ×2 (08:00→20:00)
[2021-08-24] MEDS: heparin, porcine 5000 units/ml vial SQ SCH ×2 (09:32→20:50)
[2021-08-24] MEDS ORDERED: magnesium hydroxide 30ml (MOM) UD suspension PO ONE (09:50)
[2021-08-24 11:00] VITALS: BP 102/67
[2021-08-24 18:00] VITALS: BP 110/60
--- NOTE | 2021-08-24 19:12 | NUR ---
Problems reprioritized. Patient report given, questions answered & plan of care reviewed with Katlin/RN.
[2021-08-24 20:46] VITALS: BP 100/53
--- NOTE | 2021-08-24 20:48 | NUR ---
Lasix was not administered diastolic pressure is 53.
[2021-08-24] MEDS: atorvastatin 20mg tablet PO SCH (20:50)
[2021-08-24] MEDS: potassium chloride 8mEq ER tablet PO SCH (20:50)
[2021-08-24] MEDS: doxazosin mesylate 2mg tablet PO SCH (21:00)
[2021-08-24 22:00] VITALS: BP 106/58
--- NOTE | 2021-08-24 23:04 | NUR ---
CARDURA WAS NOT ADMINISTERED. PHARMACY NEVER SENT MEDICATION.
[2021-08-25 02:00] VITALS: BP 114/60
[2021-08-25 06:00] VITALS: BP 95/53
[2021-08-25 06:10] LABS: BASOPHILS # (AUTO) 0.1 X10'3 (0-0.2); BASOPHILS % (AUTO) 1.2 % (0-1); EOSINOPHILS % (AUTO) 0.9 % (0-6); HEMATOCRIT 22.6 % (42.0-52.0); HEMOGLOBIN 7.4 g/dl (14.0-17.9); LYMPHOCYTES # (AUTO) 0.7 X10'3 (1.1-4.8); LYMPHOCYTES % (AUTO) 14.4 % (21-51); MEAN CORPUSCULAR HEMOGLOBIN 28.9 PG (27.0-31.0); MEAN CORPUSCULAR HGB CONC 32.6 g/dL (33.0-36.5); MEAN CORPUSCULAR VOLUME 88.4 FL (78-98); MEAN PLATELET VOLUME 8.7 FL (7.4-10.4); MONOCYTES # (AUTO) 0.7 X10'3 (0-0.9); MONOCYTES % (AUTO) 16.1 % (2-12); NEUTROPHILS # (AUTO) 3.1 X10'3 (1.8-7.7); NEUTROPHILS % (AUTO) 67.4 % (42-75); PLATELET COUNT 254 X10'3 (140-440); RED BLOOD COUNT 2.56 X10'6 (4.70-6.10); RED CELL DISTRIBUTION WIDTH 17.1 % (11.5-14.5); WHITE BLOOD COUNT 4.7 X10'3 (4.5-11.0)
[2021-08-25 06:18] LABS: ALANINE AMINOTRANSFERASE 285 U/L (12-78); ALBUMIN 3.4 G/DL (3.4-5.0); ALBUMIN/GLOBULIN RATIO 1.4 (1.1-1.5); ANION GAP 9 (8-16); ASPARTATE AMINO TRANSFERASE 227 U/L (10-37); BLOOD UREA NITROGEN 48 MG/DL (7-18); BUN/CREATININE RATIO 26.4 (5.4-32.0); CALCIUM 8.9 MG/DL (8.5-10.1); CHLORIDE 97 MMOL/L (99-107); CREATININE 1.82 MG/DL (0.60-1.10); GLUCOSE 103 MG/DL (70-104); POTASSIUM 4.2 MMOL/L (3.5-5.1); SODIUM 134 MMOL/L (135-145); TOTAL CARBON DIOXIDE 28.5 MMOL/L (24-32); TOTAL PROTEIN 5.9 G/DL (6.4-8.2); eGFR 36 ML/MIN
[2021-08-25] MEDS: K and/or MAG REPLACEMENT MC SCH ×2 (08:00→20:00)
[2021-08-25] MEDS: potassium chloride 8mEq ER tablet PO SCH ×2 (08:00→20:55)
[2021-08-25] MEDS: docusate sod 100mg capsule PO SCH ×2 (08:00→20:54)
[2021-08-25] MEDS: furosemide 40mg/4ml inj IV SCH ×2 (10:05→20:00)
--- NOTE | 2021-08-25 10:12 | NUR ---
Initial: Pt admitted w/ acute on chronic CHF per EMR, CT on 08/23 showed large amount of stool in rectum per MD note. Routine bowel care just ordered today, not given yet, LBM 08/22. Currently on Heart Healthy diet w/ avg 50-75% intake of meals likely meeting minimum nutrient needs at this time. Consider liberalizing to Regular diet given geriatric age. Hopeful that resolution of constipation will improve PO. No nutrition intervention implemented at this time, will continue to monitor. Recs: 1. Consider liberalizing to Regular diet given geriatric age 2. Routine bowel care 3. Weekly wts Addendum: 08/25/21 at [address] Amended: Links added.
[2021-08-25 11:00] VITALS: BP 140/90
[2021-08-25 12:39] LABS: PLATELET ESTIMATE NORMAL; TOTAL CELLS COUNTED 100
[2021-08-25 12:40] LABS: ANISOCYTOSIS 1+
[2021-08-25 12:41] LABS: POLYCHROMASIA 1+
[2021-08-25 12:42] LABS: POIKILOCYTOSIS FEW
[2021-08-25 15:00] VITALS: BP 104/54
[2021-08-25] MEDS ORDERED: verapamil 2.5 mg/ml inj IV ONE (15:08)
[2021-08-25] MEDS ORDERED: fentaNYL/PF 50MCG/1 ML 2ML syringe ONE (15:09)
[2021-08-25] MEDS ORDERED: iohexol 350MG/ML 100ml bottle IV ONE ×2 (15:09→17:30)
[2021-08-25] MEDS ORDERED: midazolam 1 mg/ML 2ml injection ONE (15:09)
[2021-08-25] MEDS ORDERED: LIDOcaine 1% (10mg/ml)w/preservative injection 20ml MDV ONE (15:09)
[2021-08-25] MEDS ORDERED: heparin 1,000unit/ml 10ml vial 10 ML ONE (15:09)
[2021-08-25] MEDS ORDERED: nitroGLYCERIN-Tridil 50MG/D5W 250 ML IV ONE (15:12)
[2021-08-25 18:00] VITALS: BP 106/54
--- NOTE | 2021-08-25 18:31 | NUR ---
Problems reprioritized. Patient report given, questions answered & plan of care reviewed with Katlin/RN.
--- NOTE | 2021-08-25 18:39 | NUR ---
By 1700 patient went to propagator laborer, in stable condition, accompanied by 1 attendant.
[2021-08-25] MEDS: atorvastatin 20mg tablet PO SCH (20:54)
[2021-08-25] MEDS: doxazosin mesylate 2mg tablet PO SCH (21:00)
[2021-08-25] MEDS: polyethylene glycol 3350 17gm powd pack PO SCH (21:00)
[2021-08-25 22:00] VITALS: BP 109/65
[2021-08-26] VITALS (8 sets, daily range): BP systolic 87–120; BP diastolic 47–60
[2021-08-26 06:44] LABS: BASOPHILS % (AUTO) 1.1 % (0-1); EOSINOPHILS % (AUTO) 0.4 % (0-6); LYMPHOCYTES # (AUTO) 0.6 X10'3 (1.1-4.8); LYMPHOCYTES % (AUTO) 15.7 % (21-51); MEAN CORPUSCULAR HEMOGLOBIN 28.8 PG (27.0-31.0); MEAN CORPUSCULAR HGB CONC 32.5 g/dL (33.0-36.5); MEAN CORPUSCULAR VOLUME 88.7 FL (78-98); MEAN PLATELET VOLUME 8.9 FL (7.4-10.4); MONOCYTES # (AUTO) 0.7 X10'3 (0-0.9); MONOCYTES % (AUTO) 17.1 % (2-12); NEUTROPHILS # (AUTO) 2.5 X10'3 (1.8-7.7); NEUTROPHILS % (AUTO) 65.7 % (42-75); PLATELET COUNT 213 X10'3 (140-440); RED BLOOD COUNT 2.44 X10'6 (4.70-6.10); WHITE BLOOD COUNT 3.8 X10'3 (4.5-11.0)
[2021-08-26 07:03] LABS: HEMATOCRIT 21.6 % (42.0-52.0)
--- NOTE | 2021-08-26 07:15 | NUR ---
Page Sent PAGER ID: [phone] MESSAGE: [phone]- Gibson Helen. have critical lab result of hgb 7.0 and hct 21.6. this is down from 7.4 the previous day and 7.2 the day before that. please advise. Dolores [phone]
--- NOTE | 2021-08-26 07:15 | NUR ---
Patient in room PCU 3024. I have received report from BHUPINDER Dalal and had the opportunity to ask questions and assume patient care.
[2021-08-26] MEDS: furosemide 40mg/4ml inj IV SCH ×3 (07:40→20:00)
[2021-08-26] MEDS: docusate sod 100mg capsule PO SCH ×2 (07:40→21:42)
[2021-08-26] MEDS: potassium chloride 8mEq ER tablet PO SCH ×2 (07:40→20:00)
[2021-08-26] MEDS: K and/or MAG REPLACEMENT MC SCH (08:00)
[2021-08-26] MEDS: heparin, porcine 5000 units/ml vial SQ SCH ×2 (08:00→21:42)
[2021-08-26 08:18] LABS: ALANINE AMINOTRANSFERASE 291 U/L (12-78); ALBUMIN 3.1 G/DL (3.4-5.0); ALBUMIN/GLOBULIN RATIO 1.2 (1.1-1.5); ANION GAP 10 (8-16); ASPARTATE AMINO TRANSFERASE 198 U/L (10-37); BILIRUBIN,TOTAL 0.9 MG/DL (0.1-1.0); BLOOD UREA NITROGEN 50 MG/DL (7-18); BUN/CREATININE RATIO 27.9 (5.4-32.0); CALCIUM 8.8 MG/DL (8.5-10.1); CHLORIDE 99 MMOL/L (99-107); CREATININE 1.79 MG/DL (0.60-1.10); GLUCOSE 91 MG/DL (70-104); POTASSIUM 4.2 MMOL/L (3.5-5.1); SODIUM 137 MMOL/L (135-145); TOTAL CARBON DIOXIDE 28.5 MMOL/L (24-32); TOTAL PROTEIN 5.6 G/DL (6.4-8.2); eGFR 36 ML/MIN
[2021-08-26 11:18] LABS: PLATELET ESTIMATE NORMAL; POLYCHROMASIA 1+; TOTAL CELLS COUNTED 100
[2021-08-26 11:19] LABS: ANISOCYTOSIS 1+; HYPOCHROMASIA 1+; TARGET CELLS FEW
[2021-08-26 11:20] LABS: GIANT PLATELET FEW; LARGE PLATELETS FEW; POIKILOCYTOSIS 1+
[2021-08-26 18:07] LABS: BASOPHILS % (AUTO) 0.8 % (0-1); EOSINOPHILS % (AUTO) 0.3 % (0-6); HEMATOCRIT 25.2 % (42.0-52.0); HEMOGLOBIN 8.3 g/dl (14.0-17.9); LYMPHOCYTES # (AUTO) 0.6 X10'3 (1.1-4.8); LYMPHOCYTES % (AUTO) 13.3 % (21-51); MEAN CORPUSCULAR HEMOGLOBIN 28.7 PG (27.0-31.0); MEAN CORPUSCULAR HGB CONC 32.8 g/dL (33.0-36.5); MEAN CORPUSCULAR VOLUME 87.6 FL (78-98); MEAN PLATELET VOLUME 8.4 FL (7.4-10.4); MONOCYTES # (AUTO) 0.7 X10'3 (0-0.9); MONOCYTES % (AUTO) 15.9 % (2-12); NEUTROPHILS # (AUTO) 3.2 X10'3 (1.8-7.7); NEUTROPHILS % (AUTO) 69.7 % (42-75); PLATELET COUNT 234 X10'3 (140-440); RED BLOOD COUNT 2.88 X10'6 (4.70-6.10); RED CELL DISTRIBUTION WIDTH 16.8 % (11.5-14.5); WHITE BLOOD COUNT 4.7 X10'3 (4.5-11.0)
[2021-08-26] MEDS: doxazosin mesylate 2mg tablet PO SCH (21:00)
[2021-08-26 21:17] LABS: TOTAL CELLS COUNTED 100
[2021-08-26 21:18] LABS: ANISOCYTOSIS 1+; PLATELET ESTIMATE NORMAL; POIKILOCYTOSIS FEW
[2021-08-26 21:20] LABS: HYPOCHROMASIA 1+; POLYCHROMASIA FEW
[2021-08-26 21:21] LABS: ELLIPTOCYTES FEW; TARGET CELLS FEW
[2021-08-26 21:22] LABS: LARGE PLATELETS FEW
[2021-08-26] MEDS: atorvastatin 20mg tablet PO SCH (21:42)
[2021-08-26] MEDS: polyethylene glycol 3350 17gm powd pack PO SCH (21:42)
[2021-08-26] MEDS: HYDROcodone/acetaminophen 5mg/325mg tablet PO PRN (22:46)
[2021-08-27 06:00] VITALS: BP 93/52
[2021-08-27] MEDS: potassium chloride 8mEq ER tablet PO SCH (07:37)
[2021-08-27] MEDS: docusate sod 100mg capsule PO SCH (07:37)
[2021-08-27] MEDS: heparin, porcine 5000 units/ml vial SQ SCH (07:38)
[2021-08-27] MEDS: furosemide 40mg/4ml inj IV SCH ×2 (07:38→07:45)
[2021-08-27] MEDS ORDERED: CARV3.12 PO ×2 (09:05)
[2021-08-27] MEDS ORDERED: FURO40TA4 PO ×2 (09:05)
--- NOTE | 2021-08-27 09:13 | NUR ---
MRSA test was completed on 08/21/21 Addendum: 08/27/21 at 0914 by Rodolfo Woodall RN Amended: Links added.
== END 2021-08-27 10:17 | disposition home health service (06) | DRG 286 ==
LOC: ER 15:43 → ED HOLD 19:58 → UNDOADMIN 19:58 → ED HOLD 20:03 → PCU 3S 23:42
PROVIDERS: ADMIT Internal Medicine; ATTEND Family Medicine
PROC: 4A023N8 Measurement of Cardiac Sampling and Pressure, Bilateral, Percutaneous Approach (ICD-10-PCS; principal; 2021-08-25)
PROC: B2111ZZ Fluoroscopy of Multiple Coronary Arteries using Low Osmolar Contrast (ICD-10-PCS; 2021-08-25)
PROC: B2131ZZ Fluoroscopy of Multiple Coronary Artery Bypass Grafts using Low Osmolar Contrast (ICD-10-PCS; 2021-08-25)
PROC: B3101ZZ Fluoroscopy of Thoracic Aorta using Low Osmolar Contrast (ICD-10-PCS; 2021-08-25)
PROC: B31J1ZZ Fluoroscopy of Left Upper Extremity Arteries using Low Osmolar Contrast (ICD-10-PCS; 2021-08-25)
PROC: 30233N1 Transfusion of Nonautologous Red Blood Cells into Peripheral Vein, Percutaneous Approach (ICD-10-PCS; 2021-08-26)
DX: I13.0 Hypertensive heart and chronic kidney disease with heart failure and stage 1 through stage 4 chronic kidney disease, or unspecified chronic kidney disease (principal); I50.23 Acute on chronic systolic (congestive) heart failure; I35.0 Nonrheumatic aortic (valve) stenosis; E87.6 Hypokalemia; D64.9 Anemia, unspecified; R10.9 Unspecified abdominal pain; E78.5 Hyperlipidemia, unspecified; Z20.822 Contact with and (suspected) exposure to COVID-19; R10.2 Pelvic and perineal pain; I48.0 Paroxysmal atrial fibrillation; I25.82 Chronic total occlusion of coronary artery; R74.01 Elevation of levels of liver transaminase levels; K59.00 Constipation, unspecified; I25.10 Atherosclerotic heart disease of native coronary artery without angina pectoris; N18.30 Chronic kidney disease, stage 3 unspecified; Z79.899 Other long term (current) drug therapy; Z95.1 Presence of aortocoronary bypass graft; Z90.49 Acquired absence of other specified parts of digestive tract
CPT/HCPCS: 36000; 36415; 36430; 71045; 74176; 76937; 80053; 83605; 83880; 84484; 85007; 85025; 85379; 86885; 86900; 86901; 86920; 87040; 87081; 87635; 93005; 93461; 93567; 96365; 96366; 96375; 99152; 99153; 99285; A4620; A5120; A6258; C1760; C1769; C1894; G0378; J1644; J1940; J2250; J3010; J3475; J3490; J7030; P9016; Q9967

== ENCOUNTER 2021-09-03 10:04 | Inpatient (IN) | payer MEDICARE, MEDICAID, OTHER ==
[~2021-09-03] VITALS: Ht 182.9 cm; Wt 68.2 kg
[~2021-09-03 10:04] MED LIST changes: +CARV3.12 PO; +DOXA4TAB42 PO; -IPRA30SP; +LISI5TAB22 PO
[2021-09-03 11:10] LABS: BASOPHILS % (AUTO) 0.4 % (0-1); EOSINOPHILS % (AUTO) 0.4 % (0-6); HEMATOCRIT 27.3 % (42.0-52.0); HEMOGLOBIN 8.9 g/dl (14.0-17.9); LYMPHOCYTES # (AUTO) 0.5 X10'3 (1.1-4.8); LYMPHOCYTES % (AUTO) 7.9 % (21-51); MEAN CORPUSCULAR HEMOGLOBIN 27.8 PG (27.0-31.0); MEAN CORPUSCULAR HGB CONC 32.5 g/dL (33.0-36.5); MEAN CORPUSCULAR VOLUME 85.7 FL (78-98); MEAN PLATELET VOLUME 8.6 FL (7.4-10.4); MONOCYTES # (AUTO) 0.8 X10'3 (0-0.9); MONOCYTES % (AUTO) 12.8 % (2-12); NEUTROPHILS # (AUTO) 4.9 X10'3 (1.8-7.7); NEUTROPHILS % (AUTO) 78.5 % (42-75); PLATELET COUNT 208 X10'3 (140-440); RED BLOOD COUNT 3.19 X10'6 (4.70-6.10); RED CELL DISTRIBUTION WIDTH 17.4 % (11.5-14.5); WHITE BLOOD COUNT 6.3 X10'3 (4.5-11.0)
[2021-09-03 11:39] LABS: ALANINE AMINOTRANSFERASE 104 U/L (12-78); ALBUMIN 3.8 G/DL (3.4-5.0); ALBUMIN/GLOBULIN RATIO 1.4 (1.1-1.5); ALKALINE PHOSPHATASE 82 IU/L (46-116); ANION GAP 13 (8-16); ASPARTATE AMINO TRANSFERASE 45 U/L (10-37); BILIRUBIN,TOTAL 0.8 MG/DL (0.1-1.0); BLOOD UREA NITROGEN 58 MG/DL (7-18); CHLORIDE 87 MMOL/L (99-107); CREATININE 1.87 MG/DL (0.60-1.10); GLUCOSE 117 MG/DL (70-104); POTASSIUM 3.5 MMOL/L (3.5-5.1); SODIUM 131 MMOL/L (135-145); TOTAL CARBON DIOXIDE 31.4 MMOL/L (24-32); TOTAL PROTEIN 6.6 G/DL (6.4-8.2); eGFR 34 ML/MIN
--- NOTE | 2021-09-03 15:16 | NUR ---
DR VICENTE AT BEDSIDE .
[2021-09-03] MEDS ORDERED: ondansetron/PF 4mg/2ml inj IV PRN (17:25)
[2021-09-03] MEDS ORDERED: acetaminophen 325mg tablet PO PRN (17:25)
[2021-09-03] MEDS ORDERED: morphine 2 MG/ML inj. syringe IV PRN (17:25)
[2021-09-03] MEDS ORDERED: magnesium 2GM in 50ml NS 50 ML IV PRN (17:25)
[2021-09-03] MEDS ORDERED: potassium Cl 20 mEq SR tablet PO PRN (17:25)
[2021-09-03] MEDS ORDERED: magnesium Cl slow-release 64mg tablet PO PRN (17:25)
[2021-09-03] MEDS ORDERED: mag hydrox/Alum hydrox/simeth 30ml oral suspension PO PRN (17:25)
[2021-09-03] MEDS ORDERED: magnesium 4gm in 100ml NS 100 ML IV PRN (17:25)
[2021-09-03] MEDS ORDERED: potassium CL 10mEq/100ml bag 100 ML IV PRN (17:25)
[2021-09-03 17:56] LABS: MAGNESIUM 2.5 MG/DL (1.5-2.4); POTASSIUM 3.5 MMOL/L (3.5-5.1)
--- NOTE | 2021-09-03 18:24 | NUR ---
Vital signs noted from ED. Patient unable to make it to TAVR clinic and was in the ED. Dr. Sosa discussed with grisel plan of care now that he is back at [facility]. Orders have been placed to evaluate patient to see if he could be a TAVR candidate.
[2021-09-03] MEDS ORDERED: POTA-192 PO (18:28)
[2021-09-03] MEDS ORDERED: TERA5CAP4 PO (18:28)
[2021-09-03 19:30] VITALS: BP 115/63
[2021-09-03] MEDS: K and/or MAG REPLACEMENT MC SCH (20:00)
[2021-09-03] MEDS: furosemide 10 MG/1 ML 10ml inj IV SCH (21:11)
[2021-09-03] MEDS: docusate sod 100mg capsule PO SCH (21:11)
[2021-09-03] MEDS: HYDROcodone/acetaminophen 5mg/325mg tablet PO PRN (21:12)
[2021-09-03 22:00] VITALS: BP 91/53
[2021-09-04 02:00] VITALS: BP 93/53
[2021-09-04] MEDS: HYDROcodone/acetaminophen 5mg/325mg tablet PO PRN ×4 (03:23→20:24)
--- NOTE | 2021-09-04 04:36 | NUR ---
Received report from ED Nurse patient admitted to room 315 AAOX3 oriented to call room call light and tv remote edema to bialteral upper and lower extremities elevated on pillows. patient denies pain sob or chest pain.
[2021-09-04 05:20] LABS: EOSINOPHILS % (AUTO) 0.9 % (0-6); HEMATOCRIT 24.1 % (42.0-52.0); HEMOGLOBIN 7.9 g/dl (14.0-17.9); LYMPHOCYTES # (AUTO) 0.6 X10'3 (1.1-4.8); LYMPHOCYTES % (AUTO) 16.2 % (21-51); MEAN CORPUSCULAR HEMOGLOBIN 28.1 PG (27.0-31.0); MEAN CORPUSCULAR HGB CONC 32.9 g/dL (33.0-36.5); MEAN CORPUSCULAR VOLUME 85.4 FL (78-98); MEAN PLATELET VOLUME 8.7 FL (7.4-10.4); MONOCYTES # (AUTO) 0.7 X10'3 (0-0.9); MONOCYTES % (AUTO) 18.4 % (2-12); NEUTROPHILS # (AUTO) 2.5 X10'3 (1.8-7.7); NEUTROPHILS % (AUTO) 63.5 % (42-75); PLATELET COUNT 180 X10'3 (140-440); RED BLOOD COUNT 2.82 X10'6 (4.70-6.10); RED CELL DISTRIBUTION WIDTH 17.3 % (11.5-14.5)
[2021-09-04 05:40] LABS: ALBUMIN 3.3 G/DL (3.4-5.0); ANION GAP 11 (8-16); BLOOD UREA NITROGEN 58 MG/DL (7-18); BUN/CREATININE RATIO 34.5 (5.4-32.0); CALCIUM 8.8 MG/DL (8.5-10.1); CHLORIDE 89 MMOL/L (99-107); CREATININE 1.68 MG/DL (0.60-1.10); GLUCOSE 105 MG/DL (70-104); POTASSIUM 3.1 MMOL/L (3.5-5.1); SODIUM 133 MMOL/L (135-145); TOTAL CARBON DIOXIDE 33.5 MMOL/L (24-32); eGFR 39 ML/MIN
[2021-09-04 08:00] VITALS: BP 95/54
[2021-09-04] MEDS: furosemide 10 MG/1 ML 10ml inj IV SCH (08:00)
[2021-09-04] MEDS: enoxaparin 40mg/0.4ml syringe SUBCUT SCH (08:22)
[2021-09-04] MEDS: docusate sod 100mg capsule PO SCH ×2 (08:25→20:02)
[2021-09-04] MEDS: potassium chloride 10mEq ER tablet PO SCH ×2 (08:50→20:03)
--- NOTE | 2021-09-04 09:00 | NUR ---
Held pts lasix due to systolic bp being too low.
[2021-09-04] MEDS: K and/or MAG REPLACEMENT MC SCH ×2 (10:00→20:03)
[2021-09-04 11:00] VITALS: BP 100/53
[2021-09-04] MEDS: potassium Cl 20 mEq SR tablet PO PRN ×2 (11:51→15:46)
[2021-09-04] MEDS: atorvastatin 20mg tablet PO SCH (11:51)
[2021-09-04 13:48] LABS: ABG BASE EXCESS 10.5 mmol/L (-2.0-2.0); ABG HCO3 33.1 mmol/L (22.0-26.0); ABG OXYGEN SATURATION 96.4 % (94-97); ABG PO2 (T) 85.9 mmHg (75.0-100.0); ALLEN'S TEST POSITIVE; FCOHb 0.7 % (0.0-3.9); FMetHb 0.3 % (0.0-1.5); FO2Hb 95.4 % (94-97); TOTAL HEMOGLOBIN 9.5 G/dl (14.0-18.0)
--- NOTE | 2021-09-04 15:25 | NUR ---
Page Sent PAGER ID: [phone] MESSAGE: Sterling Cervantes in rm 315 ABG ph came back at [phone]. [facility] ACCE [phone]
[2021-09-04 15:56] VITALS: BP 94/52
[2021-09-04] MEDS ORDERED: IODIXANOL 320 MG/ML INFUS..BTL 50ML IV ONE (16:59)
[2021-09-04] MEDS ORDERED: IODIXANOL 320 MG/ML INFUS..BTL 100ML IV ONE (16:59)
[2021-09-04 20:00] VITALS: BP 103/60
[2021-09-04] MEDS: furosemide 20 MG/2 ML vial IV SCH (20:03)
[2021-09-04] MEDS: terazosin 5mg capsule PO SCH (20:11)
[2021-09-04] MEDS: Melatonin 3mg tablet PO SCH (21:31)
--- NOTE | 2021-09-04 23:18 | NUR ---
This is an 86-year-old male, admitted 09/03/2021, day 3 of hospitalization, full code, no restraints, no isolation, admitted for SOB/ CHF. Pt was recently discharged on 09/02/2021 from [facility] with the shortness of breath and CHF. Presents to the ER at [facility] with same issue. The patient has been admitted multiple times at [facility] and [facility] in the last 2 months. The patient was supposed to follow up with Dr. Carter, Cardiothoracic surgeon for aortic valve stenosis for TAVR and he is seen by Dr. Carter today in the ER for evaluation for TAVR. The patient currently does not have any chest pain. No fever, no chills, no dysuria, no polyuria, no hematuria. The patient's last echocardiogram on 06/22/2021 shows an EF of 40-45% with calcified moderate aortic stenosis and aortic valve size 1.07 cm2 with a gradient 61/38. The patient is recommended to be admitted by CT surgery for evaluation for TAVR. Currently, pt is on ROXANA unit, AAO times 4, follows all commands, moves all extremities, afebrile. HR 83 SR w/BBB. BP runs on low side, 77/49- 103/60 weak pulses BLLE edema. Pt is on Lasix. No IVF infusing. #20 IV RA F/P. RR 18, PO 96% RA, clear/ diminished non labored, equal symmetrical. Hypoactive bowel sounds, soft non tender, non distended, Cardiac Diet well tolerated. Voids free via urinal, Bladder non distended. Skin rough friable, intact. Pt instructed to call for assistance when getting out of bed. but refuses. Currently pt remains safe. Continue to monitor.
[2021-09-05] VITALS (10 sets, daily range): BP systolic 82–101; BP diastolic 47–60
[2021-09-05 06:31] LABS: BASOPHILS % (AUTO) 0.7 % (0-1); EOSINOPHILS % (AUTO) 0.3 % (0-6); HEMATOCRIT 25.4 % (42.0-52.0); HEMOGLOBIN 8.4 g/dl (14.0-17.9); LYMPHOCYTES # (AUTO) 0.6 X10'3 (1.1-4.8); LYMPHOCYTES % (AUTO) 11.2 % (21-51); MEAN CORPUSCULAR HEMOGLOBIN 28.1 PG (27.0-31.0); MEAN CORPUSCULAR HGB CONC 32.9 g/dL (33.0-36.5); MEAN CORPUSCULAR VOLUME 85.3 FL (78-98); MEAN PLATELET VOLUME 9.1 FL (7.4-10.4); MONOCYTES # (AUTO) 0.9 X10'3 (0-0.9); MONOCYTES % (AUTO) 17.5 % (2-12); NEUTROPHILS # (AUTO) 3.5 X10'3 (1.8-7.7); NEUTROPHILS % (AUTO) 70.3 % (42-75); PLATELET COUNT 208 X10'3 (140-440); RED BLOOD COUNT 2.98 X10'6 (4.70-6.10); RED CELL DISTRIBUTION WIDTH 17.3 % (11.5-14.5)
[2021-09-05 06:55] LABS: ALBUMIN 3.5 G/DL (3.4-5.0); ANION GAP 9 (8-16); BLOOD UREA NITROGEN 60 MG/DL (7-18); BUN/CREATININE RATIO 33.3 (5.4-32.0); CHLORIDE 88 MMOL/L (99-107); GLUCOSE 100 MG/DL (70-104); MAGNESIUM 2.4 MG/DL (1.5-2.4); POTASSIUM 3.4 MMOL/L (3.5-5.1); SODIUM 129 MMOL/L (135-145); TOTAL CARBON DIOXIDE 32.5 MMOL/L (24-32); eGFR 36 ML/MIN
[2021-09-05] MEDS: docusate sod 100mg capsule PO SCH ×2 (07:31→20:00)
[2021-09-05] MEDS: potassium chloride 10mEq ER tablet PO SCH ×2 (07:32→20:54)
[2021-09-05] MEDS: furosemide 20 MG/2 ML vial IV SCH ×2 (07:32→23:48)
[2021-09-05] MEDS: atorvastatin 20mg tablet PO SCH (07:32)
[2021-09-05] MEDS: enoxaparin 40mg/0.4ml syringe SUBCUT SCH (07:33)
[2021-09-05] MEDS: HYDROcodone/acetaminophen 5mg/325mg tablet PO PRN (07:39)
--- NOTE | 2021-09-05 08:30 | NUR ---
CT called and stated due to pts ultrasound guided 18G IV infiltrating during CTA yesterday they would like pt to have a PICC line placed. Per Dr Dalal, pt will have to wait until Tuesday for PICC when the PICC nurse comes in.
[2021-09-05] MEDS: K and/or MAG REPLACEMENT MC SCH ×2 (08:56→20:00)
[2021-09-05] MEDS: potassium Cl 20 mEq SR tablet PO PRN ×2 (09:03→13:10)
[2021-09-05] MEDS: Melatonin 3mg tablet PO SCH (20:55)
[2021-09-05] MEDS: terazosin 5mg capsule PO SCH (20:55)
[2021-09-05] MEDS ORDERED: Melatonin 3mg tablet PO SCH (21:00)
[2021-09-06] VITALS (9 sets, daily range): BP systolic 82–100; BP diastolic 45–90
[2021-09-06] MEDS: HYDROcodone/acetaminophen 5mg/325mg tablet PO PRN ×4 (01:18→23:16)
--- NOTE | 2021-09-06 06:04 | NUR ---
Problems reprioritized. Patient report given, questions answered & plan of care reviewed with SHARRI RN.
[2021-09-06 06:56] LABS: EOSINOPHILS % (AUTO) 0.4 % (0-6); HEMATOCRIT 23.9 % (42.0-52.0); HEMOGLOBIN 7.8 g/dl (14.0-17.9); LYMPHOCYTES # (AUTO) 0.7 X10'3 (1.1-4.8); LYMPHOCYTES % (AUTO) 18.8 % (21-51); MEAN CORPUSCULAR HEMOGLOBIN 27.7 PG (27.0-31.0); MEAN CORPUSCULAR HGB CONC 32.8 g/dL (33.0-36.5); MEAN CORPUSCULAR VOLUME 84.4 FL (78-98); MEAN PLATELET VOLUME 9.1 FL (7.4-10.4); MONOCYTES # (AUTO) 0.5 X10'3 (0-0.9); MONOCYTES % (AUTO) 15.7 % (2-12); NEUTROPHILS # (AUTO) 2.2 X10'3 (1.8-7.7); NEUTROPHILS % (AUTO) 64.1 % (42-75); PLATELET COUNT 163 X10'3 (140-440); RED BLOOD COUNT 2.83 X10'6 (4.70-6.10); RED CELL DISTRIBUTION WIDTH 17.2 % (11.5-14.5); WHITE BLOOD COUNT 3.5 X10'3 (4.5-11.0)
[2021-09-06 07:53] LABS: ALBUMIN 3.2 G/DL (3.4-5.0); ANION GAP 10 (8-16); BLOOD UREA NITROGEN 62 MG/DL (7-18); BUN/CREATININE RATIO 35.6 (5.4-32.0); CALCIUM 8.1 MG/DL (8.5-10.1); CHLORIDE 87 MMOL/L (99-107); CREATININE 1.74 MG/DL (0.60-1.10); GLUCOSE 101 MG/DL (70-104); POTASSIUM 3.4 MMOL/L (3.5-5.1); SODIUM 127 MMOL/L (135-145); TOTAL CARBON DIOXIDE 29.9 MMOL/L (24-32); eGFR 37 ML/MIN
[2021-09-06] MEDS: potassium chloride 10mEq ER tablet PO SCH ×2 (08:29→23:04)
[2021-09-06] MEDS: K and/or MAG REPLACEMENT MC SCH ×2 (08:36→20:00)
[2021-09-06] MEDS: furosemide 20 MG/2 ML vial IV SCH (08:38)
[2021-09-06] MEDS: potassium Cl 20 mEq SR tablet PO PRN ×3 (08:39→14:41)
[2021-09-06] MEDS: atorvastatin 20mg tablet PO SCH (08:39)
[2021-09-06] MEDS: enoxaparin 30mg/0.3ml syringe SUBCUT SCH (08:42)
[2021-09-06] MEDS: docusate sod 100mg capsule PO SCH ×2 (08:43→23:03)
[2021-09-06 09:22] LABS: ANISOCYTOSIS 1+; MICROCYTOSIS 1+; PLATELET ESTIMATE NORMAL; POIKILOCYTOSIS 1+
--- NOTE | 2021-09-06 18:00 | NUR ---
Held pt's 3rd potassium protocol pill due to pt stating he was feeling a little nauseous after taking them earlier
--- NOTE | 2021-09-06 18:18 | NUR ---
Page Sent-pain meds PAGER ID: [phone] MESSAGE: New admit to Rm 318 Nuha Bee is experiencing significant pain in the RUQ, she doesn't have anything ordered for pain. Rocío ACCJustin [id number] Addendum: 09/06/21 at 1837 by Terrence Woodall RN Charted on wrong pt
--- NOTE | 2021-09-06 18:37 | NUR ---
Problems reprioritized. Patient report given, questions answered & plan of care reviewed with BHUPINDER Warren.
[2021-09-06] MEDS: terazosin 5mg capsule PO SCH (23:04)
[2021-09-06] MEDS: Melatonin 3mg tablet PO SCH (23:04)
[2021-09-07 06:00] VITALS: BP 88/56
--- NOTE | 2021-09-07 06:09 | NUR ---
Problems reprioritized. Patient report given, questions answered & plan of care reviewed with Rocío.
[2021-09-07 06:39] LABS: BASOPHILS # (AUTO) 0.1 X10'3 (0-0.2); BASOPHILS % (AUTO) 1.3 % (0-1); EOSINOPHILS % (AUTO) 0.7 % (0-6); HEMATOCRIT 25.6 % (42.0-52.0); HEMOGLOBIN 8.4 g/dl (14.0-17.9); LYMPHOCYTES # (AUTO) 0.7 X10'3 (1.1-4.8); LYMPHOCYTES % (AUTO) 16.6 % (21-51); MEAN CORPUSCULAR HEMOGLOBIN 28.1 PG (27.0-31.0); MEAN CORPUSCULAR HGB CONC 32.8 g/dL (33.0-36.5); MEAN CORPUSCULAR VOLUME 85.7 FL (78-98); MEAN PLATELET VOLUME 9.5 FL (7.4-10.4); MONOCYTES # (AUTO) 0.7 X10'3 (0-0.9); MONOCYTES % (AUTO) 16.2 % (2-12); NEUTROPHILS # (AUTO) 2.7 X10'3 (1.8-7.7); NEUTROPHILS % (AUTO) 65.2 % (42-75); PLATELET COUNT 186 X10'3 (140-440); RED BLOOD COUNT 2.99 X10'6 (4.70-6.10); RED CELL DISTRIBUTION WIDTH 17.3 % (11.5-14.5); WHITE BLOOD COUNT 4.1 X10'3 (4.5-11.0)
[2021-09-07 07:42] LABS: ALBUMIN 3.5 G/DL (3.4-5.0); ANION GAP 12 (8-16); BLOOD UREA NITROGEN 63 MG/DL (7-18); BUN/CREATININE RATIO 34.2 (5.4-32.0); CHLORIDE 84 MMOL/L (99-107); CREATININE 1.84 MG/DL (0.60-1.10); GLUCOSE 103 MG/DL (70-104); SODIUM 122 MMOL/L (135-145); TOTAL CARBON DIOXIDE 26.4 MMOL/L (24-32); eGFR 35 ML/MIN
[2021-09-07] MEDS: potassium chloride 10mEq ER tablet PO SCH ×2 (07:47→20:06)
[2021-09-07] MEDS: atorvastatin 20mg tablet PO SCH (07:47)
[2021-09-07] MEDS: docusate sod 100mg capsule PO SCH ×2 (07:47→20:06)
[2021-09-07] MEDS: enoxaparin 30mg/0.3ml syringe SUBCUT SCH (07:48)
[2021-09-07] MEDS: K and/or MAG REPLACEMENT MC SCH ×2 (08:00→20:00)
--- NOTE | 2021-09-07 09:55 | NUR ---
PAGE TO PICC RN 315B SOFIYA. NEEDS PICC LINE CONSENT SIGNED AND IN CHART. SHARRI/ORIN 0720
[2021-09-07 12:00] VITALS: BP 93/51
[2021-09-07] MEDS: HYDROcodone/acetaminophen 5mg/325mg tablet PO PRN ×2 (13:02→20:12)
[2021-09-07] MEDS: sodium chloride 1gm tablet PO SCH ×3 (13:26→20:06)
[2021-09-07 14:00] VITALS: BP 101/56
[2021-09-07 14:53] VITALS: BP 101/53
[2021-09-07 18:00] VITALS: BP 100/58
--- NOTE | 2021-09-07 18:30 | NUR ---
Problems reprioritized. Patient report given, questions answered & plan of care reviewed with HBUPINDER Warren.
[2021-09-07] MEDS: terazosin 5mg capsule PO SCH (20:06)
[2021-09-07] MEDS: Melatonin 3mg tablet PO SCH (20:06)
[2021-09-07 22:00] VITALS: BP 90/56
[2021-09-08 02:00] VITALS: BP 94/47
[2021-09-08 06:00] VITALS: BP 95/54
--- NOTE | 2021-09-08 06:30 | NUR ---
Problems reprioritized. Patient report given, questions answered & plan of care reviewed with NEREYDA ROE.
[2021-09-08 06:51] LABS: BASOPHILS % (AUTO) 0.4 % (0-1); EOSINOPHILS % (AUTO) 0.3 % (0-6); HEMATOCRIT 23.7 % (42.0-52.0); HEMOGLOBIN 7.8 g/dl (14.0-17.9); LYMPHOCYTES # (AUTO) 0.6 X10'3 (1.1-4.8); LYMPHOCYTES % (AUTO) 15.6 % (21-51); MEAN CORPUSCULAR HEMOGLOBIN 27.9 PG (27.0-31.0); MEAN CORPUSCULAR VOLUME 84.5 FL (78-98); MEAN PLATELET VOLUME 9.3 FL (7.4-10.4); MONOCYTES # (AUTO) 0.5 X10'3 (0-0.9); MONOCYTES % (AUTO) 15.2 % (2-12); NEUTROPHILS # (AUTO) 2.4 X10'3 (1.8-7.7); NEUTROPHILS % (AUTO) 68.5 % (42-75); PLATELET COUNT 173 X10'3 (140-440); RED CELL DISTRIBUTION WIDTH 17.6 % (11.5-14.5); WHITE BLOOD COUNT 3.5 X10'3 (4.5-11.0)
[2021-09-08 07:02] LABS: ALBUMIN 3.3 G/DL (3.4-5.0); ANION GAP 9 (8-16); BLOOD UREA NITROGEN 60 MG/DL (7-18); BUN/CREATININE RATIO 30.8 (5.4-32.0); CHLORIDE 85 MMOL/L (99-107); CREATININE 1.95 MG/DL (0.60-1.10); GLUCOSE 100 MG/DL (70-104); POTASSIUM 4.5 MMOL/L (3.5-5.1); SODIUM 124 MMOL/L (135-145); TOTAL CARBON DIOXIDE 30.3 MMOL/L (24-32); eGFR 33 ML/MIN
--- NOTE | 2021-09-08 07:51 | NUR ---
Initial: Pt admitted w/ acute on chronic CHF and severe aortic stenosis, awaiting TAVR per EMR. Pt currently on Heart Healthy diet w/ avg intake 54% of meals partially meeting needs. Pt could benefit from Ensure high protein BID to help meet nutrient needs. LBM 09/06 receiving routine colace. Will continue to monitor. Recs: 1. Continue Heart Healthy diet as tolerated, consider liberalizing to Regular diet 2. Ensure High Protein BIDBD; pending MD verification 3. Bowel care per rx 4. Scaled wt this admit Addendum: 09/08/21 at [address] Amended: Links added.
[2021-09-08] MEDS: K and/or MAG REPLACEMENT MC SCH ×2 (08:00→20:00)
[2021-09-08] MEDS: enoxaparin 30mg/0.3ml syringe SUBCUT SCH (08:59)
[2021-09-08] MEDS: atorvastatin 20mg tablet PO SCH (09:00)
[2021-09-08] MEDS: potassium chloride 10mEq ER tablet PO SCH ×2 (09:00→22:03)
[2021-09-08] MEDS: sodium chloride 1gm tablet PO SCH ×4 (09:00→21:55)
[2021-09-08] MEDS: docusate sod 100mg capsule PO SCH ×2 (09:00→22:03)
[2021-09-08] MEDS: HYDROcodone/acetaminophen 5mg/325mg tablet PO PRN ×2 (10:41→17:46)
[2021-09-08 10:52] LABS: TOTAL CELLS COUNTED 100
[2021-09-08 10:53] LABS: ANISOCYTOSIS 1+; BURR CELLS 1+; GIANT PLATELET FEW; LARGE PLATELETS MODERATE; PLATELET ESTIMATE NORMAL
[2021-09-08 10:54] LABS: ACANTHOCYTES FEW; ELLIPTOCYTES 1+; TEAR DROP CELLS FEW
[2021-09-08 11:00] VITALS: BP 92/59
[2021-09-08 15:00] VITALS: BP 116/62
[2021-09-08] MEDS: lactose-reduced food (Ensure High Protein) 237ml bottle PO SCH (17:46)
[2021-09-08 19:00] VITALS: BP 95/57
[2021-09-08] MEDS: Melatonin 3mg tablet PO SCH (21:55)
[2021-09-08] MEDS: terazosin 5mg capsule PO SCH (21:55)
[2021-09-08 23:00] VITALS: BP 93/59
[2021-09-09 02:00] VITALS: BP 98/57
[2021-09-09 06:00] VITALS: BP 98/57
--- NOTE | 2021-09-09 06:14 | NUR ---
Problems reprioritized. Patient report given, questions answered & plan of care reviewed with Billie ROE.
--- NOTE | 2021-09-09 06:43 | NUR ---
Patient in room MED 315. I have received report from BHUPINDER JOSHI, and had the opportunity to ask questions and assume patient care.
[2021-09-09] MEDS: docusate sod 100mg capsule PO SCH ×2 (07:30→20:29)
[2021-09-09] MEDS: enoxaparin 30mg/0.3ml syringe SUBCUT SCH (07:30)
[2021-09-09] MEDS: potassium chloride 10mEq ER tablet PO SCH ×2 (07:30→20:29)
[2021-09-09] MEDS: HYDROcodone/acetaminophen 5mg/325mg tablet PO PRN ×4 (07:30→20:29)
[2021-09-09] MEDS: sodium chloride 1gm tablet PO SCH ×4 (07:30→20:29)
[2021-09-09] MEDS: lactose-reduced food (Ensure High Protein) 237ml bottle PO SCH ×2 (07:30→17:30)
[2021-09-09] MEDS: atorvastatin 20mg tablet PO SCH (07:30)
[2021-09-09 07:33] VITALS: BP 89/55
[2021-09-09] MEDS: K and/or MAG REPLACEMENT MC SCH ×2 (08:00→20:00)
[2021-09-09 14:00] VITALS: BP 86/49
[2021-09-09 15:27] LABS: BASOPHILS % (AUTO) 0.3 % (0-1); EOSINOPHILS % (AUTO) 0 % (0-6); LYMPHOCYTES # (AUTO) 0.5 X10'3 (1.1-4.8); MEAN CORPUSCULAR HEMOGLOBIN 27.2 PG (27.0-31.0); MEAN CORPUSCULAR VOLUME 84.9 FL (78-98); MEAN PLATELET VOLUME 9.2 FL (7.4-10.4); MONOCYTES # (AUTO) 0.7 X10'3 (0-0.9); MONOCYTES % (AUTO) 16.6 % (2-12); NEUTROPHILS # (AUTO) 2.8 X10'3 (1.8-7.7); NEUTROPHILS % (AUTO) 70.1 % (42-75); PRE OP HEMATOCRIT 25.4 % (42.0-52.0); PRE OP PLATELET COUNT 199 X10'3 (140-440); RED BLOOD COUNT 2.99 X10'6 (4.70-6.10); RED CELL DISTRIBUTION WIDTH 17.5 % (11.5-14.5)
[2021-09-09 15:32] LABS: PRE OP HEMOGLOBIN 8.1 g/dL (14.0-17.9)
[2021-09-09 15:40] LABS: PRE OP INR 1.2 INR; PRE OP PROTIME 12.4 SECONDS (9.0-12.0)
[2021-09-09 15:42] LABS: ALBUMIN 3.3 G/DL (3.4-5.0); ALBUMIN/GLOBULIN RATIO 1.2 (1.1-1.5); BLOOD UREA NITROGEN 55 MG/DL (7-18); BUN/CREATININE RATIO 30.4 (5.4-32.0); CALCIUM 8.8 MG/DL (8.5-10.1); CHLORIDE 86 MMOL/L (99-107); CREATININE 1.81 MG/DL (0.60-1.10); PRE OP ANION GAP 7 (8-16); PRE OP GLUCOSE 136 MG/DL (70-104); PRE OP POTASSIUM 4.8 MMOL/L (3.4-5.1); TOTAL CARBON DIOXIDE 26.4 MMOL/L (24-32); TOTAL PROTEIN 6.1 G/DL (6.4-8.2); eGFR 36 ML/MIN
[2021-09-09 15:51] LABS: ALKALINE PHOSPHATASE 112 IU/L (46-116); PRE OP AST 91 U/L (10-37); PRE OP BILIRUB, TOTAL 1.4 MG/DL (0.0-1.0)
--- NOTE | 2021-09-09 15:51 | NUR ---
PAGE SENT 315B, DAT [facility], [facility], HGB 8.1. LAB HAD ORDER FOR TEST, I ASKED THEM TO DELAY UNTIL I HEARD FROM YOU. WERE YOU WANTING MORE LABS? THANK YOU, ANTONIO [phone]
[2021-09-09 15:54] LABS: PRE OP ALT 133 U/L (30-65); PRE OP SODIUM 119 MMOL/L (135-145)
--- NOTE | 2021-09-09 15:55 | NUR ---
PAGE SENT PAGER ID: [phone] MESSAGE: 315B, DAT [facility], CRITICAL LABS - NA 119, ALT 133. THANK YOU, ANTONIO [phone]
[2021-09-09 16:00] VITALS: BP 91/49
[2021-09-09] MEDS: normal saline 1000ml 1,000 ML IV SCH (17:05)
--- NOTE | 2021-09-09 18:26 | NUR ---
Patient in room MED 315. I have received report from BHUPINDER Wise and had the opportunity to ask questions and assume patient care.
--- NOTE | 2021-09-09 19:10 | NUR ---
Problems reprioritized. Patient report given, questions answered & plan of care reviewed with BHUPINDER MTZ.
[2021-09-09 20:00] VITALS: BP 96/61
[2021-09-09] MEDS: Melatonin 3mg tablet PO SCH (20:29)
[2021-09-09] MEDS: terazosin 5mg capsule PO SCH (20:29)
[2021-09-09] MEDS ORDERED: VANCOMYCIN 1GM/200ML IVPB 200 ML IV ONE (20:40)
[2021-09-10] VITALS (8 sets, daily range): BP systolic 71–98; BP diastolic 33–60
[2021-09-10] MEDS: HYDROcodone/acetaminophen 5mg/325mg tablet PO PRN ×3 (04:51→19:54)
[2021-09-10] MEDS ORDERED: ringers solution, lacted 1,000 ML IV SCH (05:00)
[2021-09-10] MEDS ORDERED: ondansetron/PF 4mg/2ml inj IV PRN (05:30)
[2021-09-10] MEDS ORDERED: VANCOMYCIN 1GM/200ML IVPB 200 ML IV ONE (05:30)
[2021-09-10] MEDS ORDERED: cefazolin/dext.iso 2gm/50ml 50 ML IV ONE (05:30)
--- NOTE | 2021-09-10 06:15 | NUR ---
Problems reprioritized. Patient report given, questions answered & plan of care reviewed with BHUPINDER Gorman.
[2021-09-10] MEDS: lactose-reduced food (Ensure High Protein) 237ml bottle PO SCH ×2 (07:30→17:30)
[2021-09-10] MEDS: potassium chloride 10mEq ER tablet PO SCH ×2 (07:50→19:55)
[2021-09-10] MEDS: docusate sod 100mg capsule PO SCH ×2 (07:50→19:54)
[2021-09-10] MEDS: atorvastatin 20mg tablet PO SCH (07:50)
[2021-09-10] MEDS: sodium chloride 1gm tablet PO SCH (07:51)
[2021-09-10] MEDS: enoxaparin 30mg/0.3ml syringe SUBCUT SCH (07:51)
--- NOTE | 2021-09-10 07:52 | NUR ---
Manually administered colace, Lipitor, sodium chloride as scanner did not scan. Two RN verification performed. Lovenox non administered per doctor Sosa.
[2021-09-10] MEDS: K and/or MAG REPLACEMENT MC SCH ×2 (08:00→19:53)
[2021-09-10 09:24] LABS: ALANINE AMINOTRANSFERASE 189 U/L (12-78); ALBUMIN 3.3 G/DL (3.4-5.0); ALBUMIN/GLOBULIN RATIO 1.2 (1.1-1.5); ALKALINE PHOSPHATASE 133 IU/L (46-116); ANION GAP 9 (8-16); ASPARTATE AMINO TRANSFERASE 147 U/L (10-37); BILIRUBIN,TOTAL 1.4 MG/DL (0.1-1.0); BLOOD UREA NITROGEN 57 MG/DL (7-18); BUN/CREATININE RATIO 31.1 (5.4-32.0); CALCIUM 8.8 MG/DL (8.5-10.1); CHLORIDE 86 MMOL/L (99-107); CREATININE 1.83 MG/DL (0.60-1.10); GLUCOSE 112 MG/DL (70-104); POTASSIUM 4.7 MMOL/L (3.5-5.1); TOTAL CARBON DIOXIDE 25.3 MMOL/L (24-32); TOTAL PROTEIN 6.1 G/DL (6.4-8.2); eGFR 35 ML/MIN
[2021-09-10] MEDS: furosemide inj 1,000 MG in normal saline 250ml IV soln 150 ML IV SCH (09:28)
[2021-09-10 09:33] LABS: SODIUM 120 MMOL/L (135-145)
--- NOTE | 2021-09-10 09:40 | NUR ---
ORDER FOR LASIX AT 10MG/HR - PUSHING IN FLUID WITH 10 ML OF NS PER HR PER SUGGESTION OF CRN, TELEMETRY UNIT.
[2021-09-10 15:49] LABS: ALBUMIN 3.3 G/DL (3.4-5.0); ANION GAP 13 (8-16); BLOOD UREA NITROGEN 57 MG/DL (7-18); BUN/CREATININE RATIO 31.8 (5.4-32.0); CALCIUM 8.8 MG/DL (8.5-10.1); CHLORIDE 83 MMOL/L (99-107); CREATININE 1.79 MG/DL (0.60-1.10); GLUCOSE 116 MG/DL (70-104); MAGNESIUM 2.2 MG/DL (1.5-2.4); PHOSPHORUS 4.5 MG/DL (2.3-4.5); POTASSIUM 4.4 MMOL/L (3.5-5.1); TOTAL CARBON DIOXIDE 23.4 MMOL/L (24-32); eGFR 36 ML/MIN
[2021-09-10 15:58] LABS: SODIUM 119 MMOL/L (135-145)
--- NOTE | 2021-09-10 18:26 | NUR ---
Patient in room MED 315. I have received report from ROXIE ROE and had the opportunity to ask questions and assume patient care.
--- NOTE | 2021-09-10 18:30 | NUR ---
CHECKED PUMP LASIX WITH THERMAL CUTTING TRACER MACHINE OPERATOR JEAN, STOPPED MAINTENANCE FLUIDS PER MD ORDER
[2021-09-10] MEDS: Melatonin 3mg tablet PO SCH (19:54)
[2021-09-10] MEDS: terazosin 5mg capsule PO SCH (19:55)
[2021-09-11] VITALS (8 sets, daily range): BP systolic 86–98; BP diastolic 50–56
[2021-09-11] MEDS: HYDROcodone/acetaminophen 5mg/325mg tablet PO PRN ×4 (00:21→12:41)
--- NOTE | 2021-09-11 04:41 | NUR ---
PAUSED LASIX- TOOK BP SEVERAL TIMES, 92/51, MAP 63. MAP 63. 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 WILL RE-CKECK BP IN HALF HR, RESTART DRIP IF SBP IS WITHIN PARAMETERS TO CONTINUE. MARY ROE
--- NOTE | 2021-09-11 05:09 | NUR ---
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 REQUESTED PATIENT USE CALL LIGHT WHEN FINISHED WITH URINATING. WILL RE-EDUCATE PATIENT THAT HE IS AT INCREASED RISK FOR FALLS WHILE ON IV LASIX.
[2021-09-11 05:59] LABS: ALANINE AMINOTRANSFERASE 221 U/L (12-78); ALBUMIN 3.2 G/DL (3.4-5.0); ALBUMIN/GLOBULIN RATIO 1.2 (1.1-1.5); ALKALINE PHOSPHATASE 125 IU/L (46-116); ANION GAP 8 (8-16); ASPARTATE AMINO TRANSFERASE 183 U/L (10-37); BILIRUBIN,TOTAL 1.6 MG/DL (0.1-1.0); BLOOD UREA NITROGEN 57 MG/DL (7-18); BUN/CREATININE RATIO 31.7 (5.4-32.0); CHLORIDE 85 MMOL/L (99-107); GLUCOSE 106 MG/DL (70-104); MAGNESIUM 2.2 MG/DL (1.5-2.4); PHOSPHORUS 4.4 MG/DL (2.3-4.5); POTASSIUM 4.5 MMOL/L (3.5-5.1); TOTAL CARBON DIOXIDE 25.8 MMOL/L (24-32); TOTAL PROTEIN 5.9 G/DL (6.4-8.2); eGFR 36 ML/MIN
[2021-09-11 06:00] LABS: SODIUM 119 MMOL/L (135-145)
--- NOTE | 2021-09-11 06:05 | NUR ---
CALLED TO [facility] [phone] 315B-DAT ARRIAZA; CRITICAL SODIUM 119-SAME YESTERDAY. REPORTING. YANI ACCE [id number]
--- NOTE | 2021-09-11 06:08 | NUR ---
Problems reprioritized. Patient report given, questions answered & plan of care reviewed with BRITT ROE.
[2021-09-11] MEDS: K and/or MAG REPLACEMENT MC SCH ×2 (06:56→20:00)
[2021-09-11] MEDS: lactose-reduced food (Ensure High Protein) 237ml bottle PO SCH ×5 (08:12→21:42)
[2021-09-11] MEDS: enoxaparin 30mg/0.3ml syringe SUBCUT SCH (08:37)
[2021-09-11] MEDS: potassium chloride 10mEq ER tablet PO SCH ×2 (08:37→20:00)
[2021-09-11] MEDS: docusate sod 100mg capsule PO SCH ×2 (08:37→20:00)
[2021-09-11] MEDS: atorvastatin 20mg tablet PO SCH (08:37)
[2021-09-11] MEDS ORDERED: TOLVAPTAN 30 MG TABLET PO ONE (10:50)
[2021-09-11] MEDS: metolazone 2.5mg tablet PO SCH (12:25)
[2021-09-11] MEDS: DOBUTamine-DoBUTrex 500mg/D5W 250 ML IV SCH (15:33)
--- NOTE | 2021-09-11 15:36 | NUR ---
patient started on dobutamine 2.[address] Aguero's orders.
[2021-09-11] MEDS ORDERED: EPOETIN ALFA-EPBX 20,000 UNIT/ML 1 ML MDV SQ ONE (15:40)
[2021-09-11] MEDS: normal saline 1000ml 1,000 ML IV SCH (16:00)
[2021-09-11 16:22] LABS: ALANINE AMINOTRANSFERASE 212 U/L (12-78); ALBUMIN 3.3 G/DL (3.4-5.0); ALBUMIN/GLOBULIN RATIO 1.2 (1.1-1.5); ALKALINE PHOSPHATASE 142 IU/L (46-116); ANION GAP 13 (8-16); ASPARTATE AMINO TRANSFERASE 171 U/L (10-37); BILIRUBIN,TOTAL 1.4 MG/DL (0.1-1.0); BLOOD UREA NITROGEN 59 MG/DL (7-18); BUN/CREATININE RATIO 30.4 (5.4-32.0); CALCIUM 8.8 MG/DL (8.5-10.1); CHLORIDE 84 MMOL/L (99-107); CREATININE 1.94 MG/DL (0.60-1.10); GLUCOSE 114 MG/DL (70-104); POTASSIUM 4.4 MMOL/L (3.5-5.1); TOTAL CARBON DIOXIDE 23.5 MMOL/L (24-32); eGFR 33 ML/MIN
[2021-09-11 16:23] LABS: SODIUM 120 MMOL/L (135-145)
[2021-09-11 16:34] LABS: FERRITIN 98 NG/ML (26-388)
[2021-09-11 16:50] LABS: % IRON SATURATION 4 % (11-46); IRON 16 UG/DL (53-167); TOTAL IRON BINDING CAPACITY 433 UG/DL (259-388)
[2021-09-11 18:57] LABS: CLARITY,URINE CLEAR (Clear); COLOR,URINE YELLOW (Yellow); GLUCOSE, URINE NEGATIVE (Neg); KETONES,URINE NEGATIVE (Neg); LEUKOCYTE ESTERASE ,URINE NEGATIVE (Neg); NITRITES, URINE NEGATIVE (Neg); OCCULT BLOOD,URINE NEGATIVE (Neg); PROTEIN,URINE NEGATIVE (Neg); UROBILINOGEN,URINE 0.2 E.U/dL (0.2-1.0)
[2021-09-11 19:07] LABS: SODIUM,URINE RANDOM 19 MEQ/L
[2021-09-11 19:08] LABS: OSMOLALITY UA 212 MOSM/K (50-1400)
[2021-09-11 19:14] LABS: UA COLLECTION TYPE CLN CATCH MIDSTREAM
[2021-09-11] MEDS: Melatonin 3mg tablet PO SCH (21:17)
[2021-09-11] MEDS: terazosin 5mg capsule PO SCH (21:17)
[2021-09-11 21:49] LABS: ALBUMIN 3.4 G/DL (3.4-5.0); ANION GAP 15 (8-16); BLOOD UREA NITROGEN 58 MG/DL (7-18); BUN/CREATININE RATIO 30.7 (5.4-32.0); CALCIUM 8.5 MG/DL (8.5-10.1); CHLORIDE 82 MMOL/L (99-107); CREATININE 1.89 MG/DL (0.60-1.10); GLUCOSE 114 MG/DL (70-104); MAGNESIUM 2.1 MG/DL (1.5-2.4); PHOSPHORUS 4.9 MG/DL (2.3-4.5); POTASSIUM 3.6 MMOL/L (3.5-5.1); SODIUM 122 MMOL/L (135-145); TOTAL CARBON DIOXIDE 25.4 MMOL/L (24-32); eGFR 34 ML/MIN
[2021-09-12] MEDS: lactose-reduced food (Ensure High Protein) 237ml bottle PO SCH (00:51)
[2021-09-12 02:00] VITALS: BP 82/47
[2021-09-12] MEDS: HYDROcodone/acetaminophen 5mg/325mg tablet PO PRN ×4 (03:41→23:08)
--- NOTE | 2021-09-12 03:45 | NUR ---
This is an 86-year-old male, admitted 09/03/2021, day 9 of hospitalization, full code, no restraints, no isolation, admitted for SOB/ CHF. Pt was recently discharged on 09/02/2021 from [facility] with the shortness of breath and CHF. Presents to the ER at [facility] with same issue. The patient has been admitted multiple times at [facility] and [facility] in the last 2 months. The patient was supposed to follow up with Dr. Carter, Cardiothoracic surgeon for aortic valve stenosis for TAVR and he is seen by Dr. Carter today in the ER for evaluation for TAVR. The patient currently does not have any chest pain. No fever, no chills, no dysuria, no polyuria, no hematuria. The patient's last echocardiogram on 06/22/2021 shows an EF of 40-45% with calcified moderate aortic stenosis and aortic valve size 1.07 cm2 with a gradient 61/38. The patient is recommended to be admitted by CT surgery for evaluation for TAVR. Currently, pt is on ROXANA unit, AAO times 4, follows all commands, moves all extremities, steady gait, afebrile. HR 75 SR w/BBB. BP runs on low side, 110/68 Dopamine gtt infusing 4 mcgs/min, weak pulses BLLE edema. Pt is on Lasix gtt 2.5 mg/hr. #20 IV RA F/P. RR 18, PO 98% RA, clear/ diminished non labored, equal symmetrical. Hypoactive bowel sounds, soft non tender, non distended, Cardiac Diet fairly tolerated. Voids free via urinal 1800 ml's+, Bladder non distended. Skin rough friable, intact. Pt instructed to call for assistance when getting out of bed. but refuses. Currently pt remains safe. Continue to monitor. Sodium 120.
[2021-09-12 07:58] LABS: ALBUMIN 3.1 G/DL (3.4-5.0); ANION GAP 12 (8-16); BLOOD UREA NITROGEN 55 MG/DL (7-18); BUN/CREATININE RATIO 31.6 (5.4-32.0); CALCIUM 8.3 MG/DL (8.5-10.1); CHLORIDE 81 MMOL/L (99-107); CREATININE 1.74 MG/DL (0.60-1.10); GLUCOSE 89 MG/DL (70-104); MAGNESIUM 2.2 MG/DL (1.5-2.4); PHOSPHORUS 4.7 MG/DL (2.3-4.5); TOTAL CARBON DIOXIDE 26.3 MMOL/L (24-32); eGFR 37 ML/MIN
[2021-09-12] MEDS: K and/or MAG REPLACEMENT MC SCH ×2 (08:00→19:15)
[2021-09-12 09:14] LABS: POTASSIUM 2.9 MMOL/L (3.5-5.1); SODIUM 119 MMOL/L (135-145)
[2021-09-12] MEDS: atorvastatin 20mg tablet PO SCH (09:15)
[2021-09-12] MEDS: potassium chloride 10mEq ER tablet PO SCH ×2 (09:15→20:12)
[2021-09-12] MEDS: docusate sod 100mg capsule PO SCH ×2 (09:15→20:13)
[2021-09-12] MEDS: enoxaparin 30mg/0.3ml syringe SUBCUT SCH (09:16)
[2021-09-12] MEDS: furosemide inj 1,000 MG in normal saline 250ml IV soln 150 ML IV SCH (09:18)
[2021-09-12 09:39] LABS: BASOPHILS % (AUTO) 0.2 % (0-1); EOSINOPHILS % (AUTO) 0.2 % (0-6); HEMATOCRIT 23.6 % (42.0-52.0); HEMOGLOBIN 7.7 g/dl (14.0-17.9); LYMPHOCYTES # (AUTO) 0.3 X10'3 (1.1-4.8); MEAN CORPUSCULAR HEMOGLOBIN 27.4 PG (27.0-31.0); MEAN CORPUSCULAR HGB CONC 32.6 g/dL (33.0-36.5); MEAN CORPUSCULAR VOLUME 84.1 FL (78-98); MEAN PLATELET VOLUME 9.2 FL (7.4-10.4); MONOCYTES # (AUTO) 0.6 X10'3 (0-0.9); MONOCYTES % (AUTO) 15.1 % (2-12); NEUTROPHILS # (AUTO) 3.1 X10'3 (1.8-7.7); NEUTROPHILS % (AUTO) 77.5 % (42-75); PLATELET COUNT 180 X10'3 (140-440); RED CELL DISTRIBUTION WIDTH 17.7 % (11.5-14.5)
--- NOTE | 2021-09-12 10:00 | NUR ---
LOW NA,LOW K+ DR HERRON NOTIFIED ORDER RECEIVED FOR KCL 40 MEQ ONE TIME, BUMEX 2MG IV INJ ONE TIME.
[2021-09-12 10:45] LABS: ANISOCYTOSIS 1+; MICROCYTOSIS 1+; PLATELET ESTIMATE NORMAL; POLYCHROMASIA 1+; TARGET CELLS FEW
[2021-09-12] MEDS ORDERED: bumetanide 0.25mg/ml 4ml vial IV ONE (10:50)
[2021-09-12] MEDS ORDERED: potassium Cl 20 mEq SR tablet PO STA (10:50)
[2021-09-12 11:00] VITALS: BP 100/52
[2021-09-12] MEDS: metolazone 2.5mg tablet PO SCH (12:29)
[2021-09-12] MEDS ORDERED: magnesium 4gm in 100ml NS 100 ML IV PRN (15:15)
[2021-09-12] MEDS ORDERED: magnesium Cl slow-release 64mg tablet PO PRN (15:15)
[2021-09-12] MEDS ORDERED: magnesium 2GM in 50ml NS 50 ML IV PRN (15:15)
[2021-09-12] MEDS ORDERED: potassium Cl 20 mEq SR tablet PO PRN ×2 (15:15)
[2021-09-12 15:44] VITALS: BP 99/52
[2021-09-12 16:08] LABS: ALBUMIN 3.5 G/DL (3.4-5.0); ANION GAP 9 (8-16); BLOOD UREA NITROGEN 56 MG/DL (7-18); BUN/CREATININE RATIO 31.5 (5.4-32.0); CALCIUM 8.8 MG/DL (8.5-10.1); CHLORIDE 79 MMOL/L (99-107); CREATININE 1.78 MG/DL (0.60-1.10); GLUCOSE 109 MG/DL (70-104); MAGNESIUM 2.1 MG/DL (1.5-2.4); PHOSPHORUS 4.9 MG/DL (2.3-4.5); TOTAL CARBON DIOXIDE 27.2 MMOL/L (24-32); eGFR 37 ML/MIN
[2021-09-12 16:13] LABS: POTASSIUM 2.8 MMOL/L (3.5-5.1); SODIUM 115 MMOL/L (135-145)
--- NOTE | 2021-09-12 16:37 | NUR ---
PAGER ID: [phone] MESSAGE: HI RE: [id number] K+2.8 40MG OF KCL ADMINISTERED PER DR HERRON AND NS IS INFUSING @ 100 BHUPINDER BLAIR
--- NOTE | 2021-09-12 16:48 | NUR ---
call placed to DR HERRON order received for potassium 80MEq po one time, kcl 40 IV. Noted in mar
[2021-09-12] MEDS ORDERED: potassium Cl 20 mEq/100mL bag IV ONE (17:45)
[2021-09-12] MEDS ORDERED: potassium Cl 20 mEq SR tablet PO ONE (17:55)
[2021-09-12 18:00] VITALS: BP 94/44
--- NOTE | 2021-09-12 18:20 | NUR ---
Patient in room MED 315. I have received report from BHUPINDER [place] and had the opportunity to ask questions and assume patient care.
[2021-09-12] MEDS: potassium CL 10mEq/100ml bag 100 ML IV PRN ×4 (18:44→23:08)
[2021-09-12] MEDS ORDERED: potassium chloride 10mEq ER tablet PO ONE (18:45)
--- NOTE | 2021-09-12 19:43 | NUR ---
Problems reprioritized. Patient report given, questions answered & plan of care reviewed with BRITT ROE.
[2021-09-12] MEDS: magnesium hydroxide 30ml (MOM) UD suspension PO PRN (20:12)
[2021-09-12] MEDS: Melatonin 3mg tablet PO SCH (20:12)
[2021-09-12] MEDS: terazosin 5mg capsule PO SCH (20:12)
[2021-09-12 21:41] LABS: ALBUMIN 3.1 G/DL (3.4-5.0); ANION GAP 10 (8-16); BLOOD UREA NITROGEN 53 MG/DL (7-18); BUN/CREATININE RATIO 33.1 (5.4-32.0); CALCIUM 8.6 MG/DL (8.5-10.1); CHLORIDE 80 MMOL/L (99-107); GLUCOSE 102 MG/DL (70-104); MAGNESIUM 2.1 MG/DL (1.5-2.4); PHOSPHORUS 4.7 MG/DL (2.3-4.5); POTASSIUM 3.2 MMOL/L (3.5-5.1); TOTAL CARBON DIOXIDE 26.3 MMOL/L (24-32); eGFR 41 ML/MIN
[2021-09-12 21:45] LABS: SODIUM 116 MMOL/L (135-145)
[2021-09-12 22:00] VITALS: BP 90/52
[2021-09-13 02:00] VITALS: BP 97/52
[2021-09-13] MEDS: HYDROcodone/acetaminophen 5mg/325mg tablet PO PRN ×2 (02:59→07:59)
[2021-09-13 03:40] LABS: BASOPHILS % (AUTO) 0.5 % (0-1); EOSINOPHILS % (AUTO) 0.3 % (0-6); HEMATOCRIT 23.9 % (42.0-52.0); HEMOGLOBIN 7.8 g/dl (14.0-17.9); LYMPHOCYTES # (AUTO) 0.3 X10'3 (1.1-4.8); LYMPHOCYTES % (AUTO) 5.6 % (21-51); MEAN CORPUSCULAR HEMOGLOBIN 27.4 PG (27.0-31.0); MEAN CORPUSCULAR HGB CONC 32.9 g/dL (33.0-36.5); MEAN CORPUSCULAR VOLUME 83.3 FL (78-98); MONOCYTES # (AUTO) 0.6 X10'3 (0-0.9); MONOCYTES % (AUTO) 12.1 % (2-12); NEUTROPHILS # (AUTO) 3.8 X10'3 (1.8-7.7); NEUTROPHILS % (AUTO) 81.5 % (42-75); PLATELET COUNT 185 X10'3 (140-440); RED BLOOD COUNT 2.86 X10'6 (4.70-6.10); RED CELL DISTRIBUTION WIDTH 17.5 % (11.5-14.5); WHITE BLOOD COUNT 4.7 X10'3 (4.5-11.0)
[2021-09-13 03:47] LABS: ALBUMIN 3.2 G/DL (3.4-5.0); ANION GAP 5 (8-16); BLOOD UREA NITROGEN 53 MG/DL (7-18); BUN/CREATININE RATIO 32.5 (5.4-32.0); CALCIUM 8.9 MG/DL (8.5-10.1); CHLORIDE 82 MMOL/L (99-107); CREATININE 1.63 MG/DL (0.60-1.10); GLUCOSE 99 MG/DL (70-104); MAGNESIUM 2.3 MG/DL (1.5-2.4); PHOSPHORUS 4.5 MG/DL (2.3-4.5); POTASSIUM 4.1 MMOL/L (3.5-5.1); TOTAL CARBON DIOXIDE 27.3 MMOL/L (24-32); eGFR 40 ML/MIN
[2021-09-13 03:49] LABS: SODIUM 114 MMOL/L (135-145)
[2021-09-13] MEDS ORDERED: sodium chloride 3% IV.soln 500 ML IV ONE (04:20)
[2021-09-13] MEDS: DOBUTamine-DoBUTrex 500mg/D5W 250 ML IV SCH (04:35)
--- NOTE | 2021-09-13 06:23 | NUR ---
Problems reprioritized. Patient report given, questions answered & plan of care reviewed with BHUPINDER [place].
[2021-09-13 07:15] VITALS: BP 76/34
[2021-09-13 07:20] VITALS: BP 90/46
[2021-09-13] MEDS: lactose-reduced food (Ensure High Protein) 237ml bottle PO SCH (07:30)
[2021-09-13] MEDS: potassium chloride 10mEq ER tablet PO SCH (07:52)
[2021-09-13] MEDS: enoxaparin 30mg/0.3ml syringe SUBCUT SCH (07:52)
[2021-09-13] MEDS: atorvastatin 20mg tablet PO SCH (07:52)
[2021-09-13] MEDS: docusate sod 100mg capsule PO SCH (07:53)
[2021-09-13] MEDS: magnesium hydroxide 30ml (MOM) UD suspension PO PRN (07:58)
--- NOTE | 2021-09-13 08:47 | NUR ---
PT IS AGITATED, STATES HE IS "LEAVING AT 1000" A/O X3, DOBUTAMINE DRIP AND 3%SALINE PER ORDERS. INTERMITTENT SYMPTOMATIC HYPOTENSION. DR VELARDE MESSAGED RE PT'S DESIRE TO LEAVE AMA.
[2021-09-13] MEDS: K and/or MAG REPLACEMENT MC SCH (08:52)
--- NOTE | 2021-09-13 09:21 | NUR ---
PT CONTINUES TO REMOVE BP CUFF, IS GENERALLY NON COMPLIANT WITH REQUESTS.
--- NOTE | 2021-09-13 09:26 | NUR ---
PAGED DR VELARDE X2 REGARDING PT LEAVING AT 1000 AMA. NO RESPONSE.
[2021-09-13] MEDS ORDERED: bumetanide 0.25mg/ml 4ml vial IV SCH (10:00)
--- NOTE | 2021-09-13 10:11 | NUR ---
1000 DR VELARDE AT BEDSIDE, COUNSELED PT ON THE NEED TO STAY AN INPATIENT 100 DR. DENISE AT BEDSIDE COUNSELING PT ON THE NEED TO STAY AN IMPATIENT. THIS RN HAS COUNSELED THE PT ON THE NEED FOR HIM TO STAY AN INPATIENT. THE PT IS NOT WILLING TO STAY, IV DOBUTAMINE HAS BEEN DISCONTINUED, THE PT IS GETTING DRESSED AND REQUESTING A WHEELCHAIR TO THE LOBBY WHEN HIS RIDE ARRIVES. AMA PAPERWORK HAS BEEN SIGNED BY PT AND PRIMARY MD.
--- NOTE | 2021-09-13 10:38 | NUR ---
PT HAS SIGNED THE AMA PAPERWORK. IV DC'D TIP INTACT PER PT'S REQUEST DESPITE BEING COUNSELED ON THE POSSIBLE NEED FOR USE IN THE IMMEDIATE FUTURE.
[2021-09-13 11:18] LABS: ALBUMIN 3.1 G/DL (3.4-5.0); BLOOD UREA NITROGEN 53 MG/DL (7-18); BUN/CREATININE RATIO 33.1 (5.4-32.0); CALCIUM 8.7 MG/DL (8.5-10.1); GLUCOSE 112 MG/DL (70-104); MAGNESIUM 2.2 MG/DL (1.5-2.4); PHOSPHORUS 4.4 MG/DL (2.3-4.5); TOTAL CARBON DIOXIDE 25.5 MMOL/L (24-32); eGFR 41 ML/MIN
--- NOTE | 2021-09-13 12:03 | NUR ---
PT LEFT AMA, PAPERWORK SIGNED.
[2021-09-14 08:57] LABS: POTASSIUM 4.2 MMOL/L (3.3-5.1)
[2021-09-14 15:41] LABS: ANION GAP 12 (8-16); CHLORIDE 85 MMOL/L (99-107); POTASSIUM 4.2 MMOL/L (3.5-5.1); SODIUM 122 MMOL/L (135-145)
== END 2021-09-13 12:00 | disposition left against medical advice (07) | DRG 291 ==
LOC: ER 10:05 → ED HOLD 17:27 → MED 3N 19:30
PROVIDERS: ADMIT Family Medicine; ATTEND Family Medicine
PROC: B32T1ZZ Computerized Tomography (CT Scan) of Left Pulmonary Artery using Low Osmolar Contrast (ICD-10-PCS; principal; 2021-09-07)
PROC: B3201ZZ Computerized Tomography (CT Scan) of Thoracic Aorta using Low Osmolar Contrast (ICD-10-PCS; 2021-09-07)
PROC: B32S1ZZ Computerized Tomography (CT Scan) of Right Pulmonary Artery using Low Osmolar Contrast (ICD-10-PCS; 2021-09-07)
PROC: B4201ZZ Computerized Tomography (CT Scan) of Abdominal Aorta using Low Osmolar Contrast (ICD-10-PCS; 2021-09-07)
PROC: B4241ZZ Computerized Tomography (CT Scan) of Superior Mesenteric Artery using Low Osmolar Contrast (ICD-10-PCS; 2021-09-07)
PROC: B4281ZZ Computerized Tomography (CT Scan) of Bilateral Renal Arteries using Low Osmolar Contrast (ICD-10-PCS; 2021-09-07)
PROC: B42C1ZZ Computerized Tomography (CT Scan) of Pelvic Arteries using Low Osmolar Contrast (ICD-10-PCS; 2021-09-07)
PROC: B42H1ZZ Computerized Tomography (CT Scan) of Bilateral Lower Extremity Arteries using Low Osmolar Contrast (ICD-10-PCS; 2021-09-07)
PROC: B4211ZZ Computerized Tomography (CT Scan) of Celiac Artery using Low Osmolar Contrast (ICD-10-PCS; 2021-09-07)
DX: I13.0 Hypertensive heart and chronic kidney disease with heart failure and stage 1 through stage 4 chronic kidney disease, or unspecified chronic kidney disease (principal); I50.23 Acute on chronic systolic (congestive) heart failure; E87.1 Hypo-osmolality and hyponatremia; I48.0 Paroxysmal atrial fibrillation; J44.9 Chronic obstructive pulmonary disease, unspecified; I25.10 Atherosclerotic heart disease of native coronary artery without angina pectoris; Z20.822 Contact with and (suspected) exposure to COVID-19; I08.3 Combined rheumatic disorders of mitral, aortic and tricuspid valves; Z60.2 Problems related to living alone; N18.32 Chronic kidney disease, stage 3b; E87.6 Hypokalemia; N40.0 Benign prostatic hyperplasia without lower urinary tract symptoms; Z53.29 Procedure and treatment not carried out because of patient's decision for other reasons; I45.10 Unspecified right bundle-branch block; D63.8 Anemia in other chronic diseases classified elsewhere; E78.5 Hyperlipidemia, unspecified; K76.1 Chronic passive congestion of liver; Z79.01 Long term (current) use of anticoagulants; Z82.49 Family history of ischemic heart disease and other diseases of the circulatory system; Z86.16 Personal history of COVID-19; Z87.891 Personal history of nicotine dependence; Z95.1 Presence of aortocoronary bypass graft; Z90.49 Acquired absence of other specified parts of digestive tract; Z79.899 Other long term (current) drug therapy
CPT/HCPCS: 36000; 36410; 36415; 36600; 71045; 71046; 71275; 74174; 76937; 80048; 80053; 80069; 81003; 82728; 82803; 83540; 83550; 83735; 83880; 83930; 83935; 84100; 84132; 84300; 84443; 85007; 85008; 85018; 85025; 85610; 85730; 86885; 86900; 86901; 86920; 87081; 87635; 93005; 93308; 94760; 99285; G0378; J0690; J1250; J1650; J1940; J2405; J3370; J3480; J3490; J7030; J7050; J7131; Q4081; Q9967